=== PATIENT | female | born 1945 | race Caucasian/White ===

== ENCOUNTER 2018-07-24 10:02 | Inpatient (IN) | payer MEDICARE, BC, OTHER ==
--- NOTE | 2018-07-15 13:23 | HP ---
PREOPERATIVE HISTORY AND PHYSICAL: DATE OF ADMISSION: 07/24/18 PROVIDER: Marifer Herring MD* (dictated by JUAN DAVID Caro). CHIEF COMPLAINT: Right hip pain. HISTORY OF PRESENT ILLNESS: Ms. Terrell is a 73-year-old female who has had 10 years of increasingly severe right hip pain. It has become worse over the last 6 months. She has difficulty walking at home. It radiates down her thighs. She uses a rolling walker and has to hold onto the sanchez to walk. She tried physical therapy but that made it worse. She has tried antiinflammatories and other conservative management without relief. She is interested in surgical intervention for correction of the problem. PAST MEDICAL HISTORY: Hypothyroidism, hypercholesterolemia, osteoarthritis, and parathyroid cancer. PAST SURGICAL HISTORY: Partial thyroid and parathyroid excision, laparoscopy, D and C, and cholecystectomy. She reports no complications with the anesthesia with those procedures. CURRENT MEDICATIONS: 1. Tylenol as needed for pain. 2. Meloxicam 15 mg daily. 3. Levothyroxine sodium 150 mcg daily. 4. Atorvastatin calcium 20 mg daily. 5. Calcitriol 0.25 mcg daily. 6. Calcium supplement. 7. Multivitamin. 8. Garlic supplement. 9. Flaxseed oil. 10. Prune juice as needed. 11. Turmeric. ALLERGIES: SULFA DRUGS. FAMILY HISTORY: Positive for diabetes in her father and cancer in her sibling. SOCIAL HISTORY: She lives with her spouse. 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 She denies tobacco, alcoholic beverage, or other recreational drug use and she is right-hand dominant. REVIEW OF SYSTEMS: A 14-point review of systems was discussed with the patient , positive for seasonal allergies. All other systems were negative except as discussed in the HPI. PHYSICAL EXAMINATION GENERAL: She is a well-developed, well-nourished pleasant female in no acute distress at rest. She is alert and oriented x3 with appropriate mood and affect. HEENT: Normocephalic, atraumatic. Her hearing and vision are grossly intact. GAIT : She ambulates with a moderately antalgic gait, favoring the right hip with a mild abductor lurch. She has a decreased single-leg stance and her coordination is normal. NECK: Her trachea is midline. CARDIOVASCULAR: Regular rate and rhythm. No murmurs, rubs, or gallops. Normal S1, S2. RESPIRATORY: Lungs are clear to auscultation bilaterally. No wheezes, rales, or rhonchi. ABDOMEN: Soft, nondistended, nontender. Normal bowel sounds. EXTREMITIES: Exam of the right lower extremity: The patient's skin is intact. There are no abrasions or open wounds. No palpable masses or lymph nodes. She has 0 to 85 degrees of flexion at the hip with pain but no instability, 0 degrees of internal rotation, 20 degrees of external rotation with extreme pain in the groin. There is no edema, varicosity, or hyperreflexia distally. She has 5/5 ankle dorsiflexion and plantar flexion strength. Sensation to light touch is intact to all nerve distributions. She has 2+ dorsalis pedis pulse. IMAGING: Previous views of the right hip were reviewed and showed severe end- stage osteoarthritis with [id number] contact, subchondral sclerosis, and osteophyte formation. IMPRESSION: Right hip osteoarthritis. PLAN: The patient is to undergo right total hip arthroplasty by Dr. Herring on . The risks, benefits, and postoperative course were discussed with the patient in the office by Dr. Herring and the patient would like to proceed. All of her questions were answered of her full satisfaction. We will follow up with the patient in the postoperative phase. JUAN DAVID CARO [id number]/CPS #: [id number]
[~2018-07-24 10:02] MED LIST: Acetaminophen IV 1GM/100ML * 1,000 MG/100 ML VIAL IVPB ONE; Buffered Lidocaine 1% SYRIN* 1 ML/SYRINGE INTRADERM ONE; Dexamethasone IV* 4 MG/ML 1 ML (4 MG) IV SLOW PU ONE; Famotidine IV* 10 MG/ML 2 ML (20 mg) IV ONE; Gabapentin CAP(*) 300 MG PO ONE; Lactated Ringers 1000 ML Bag* 1,000 ML IV SCH; ceFAZolin 2 GM in NS PREMIX(*) 2 GM/100 ML BAG IVPB ONE; celeCOXIB CAP* 200 MG PO ONE
--- OUTSIDE RECORDS SUMMARY | 2018-07-24 10:06 | XMS REPORT | Continuity of Care Document ---
:1945 External Reference #:[id number] Author Name Yeison Darby Care Team Providers Name Role Phone Delphine Piña MD Primary Care Physician Unavailable Payers Date Identification Numbers Payment Provider Subscriber Policy Number: [id number] Medicare Haven Terrell PayID: [id number] [address] [place] [address] Expires: 2018 Policy Number: [id number] Medicare Haven Terrell PayID: [id number] [address] [place] [address] Policy Number: [id number] [facility] Haven Terrell PayID: [id number] [address] [place] [address] Policy Number: [id number] [employer] Haven Terrell PayID: [id number] [address] [place] [address] Advance Directives Description No Information Available Problems Date Description Provider Status Onset: 07/11/2018 Localized, primary osteoarthritis of the Marifer Yann Herring Active pelvic region and thigh Family History Date Family Member(s) Observation Comments General Diabetes General Cancer Social History Type Date Description Comments Sex Unknown Lives With Spouse Occupation Retired ETOH Use Denies alcohol use Tobacco Use Start: Unknown Patient has never smoked Smoking Status Reviewed: 07/11/18 Patient has never smoked Exercise Type/Frequency Exercises sporadically Allergies, Adverse Reactions, Alerts Date Description Reaction Status Severity Comments 06/23/2018 Sulfa Active Medications Medication Date Status Form Strength Qnty SIG Indications Ordering Provider Tylenol Active Unknown 000 Meloxicam Active Unknown 000 Levothyroxine Active Tablets 150mcg Jabier, Sodium 000 MD Manjeet Atorvastatin Active Tablets 20mg Take One Unknown Calcium 000 Tablet By Mouth Every Day Calcitriol Active Capsules 0.25mcg 1 by Unknown 000 mouth every day Calcium\\ Active Unknown 000 Multi Complete Active Unknown 000 Garlic Active Unknown 000 Flaxseed Oil Active Unknown 000 Prune Juice Active Unknown 000 Turmeric With Active Unknown Black Pepper 000 Gabapentin Hx Capsules 100mg Janak 000 - Alesha, APPEALS COORDINATOR-BC 019 Extra Strength Hx Unknown Pain Reliever 000 - [address] 81mg 1 by Unknown 000 - mouth every 019 day Immunizations Description No Information Available Vital Signs Date Vital Result Comment 07/11/2018 1:26pm Height 68 inches 5'8" Weight 228.00 lb Heart Rate 100 /min BP Systolic 120 mmHg BP Diastolic 86 mmHg BMI (Body Mass Index) 34.7 kg/m2 06/23/2018 2:15pm Height 68 inches 5'8" Weight 225.00 lb Heart Rate 80 /min BP Systolic 154 mmHg BP Diastolic 86 mmHg Pain Level 5 BMI (Body Mass Index) 34.2 kg/m2 Results Description No Information Available Procedures Description No Information Available Encounters Type Date Location Provider Dx Diagnosis Office Visit 06/23/2018 Orthopedic Marifer Herring, M25.551 Pain in right hip 1:45p [facility] M16.11 Unilateral primary osteoarthritis, right hip Plan of Treatment Future Appointment(s):08/08/2018 2:45 pm - Marifer Herring M.D. at [facility]..07/24/2018 11:30 am - THERESE Kelley at [facility]..07/24/2018 11:30 am - JUAN DAVID Randhawa at [facility].A.07/24/2018 11:30 am - Marifer Herring M.D. at [facility].A.08/28/2018 11:00 am - Lena Andrew MD at [facility] AT Xrujxarq75/05/2019 - Marifer Herring M.D.M25.551 Pain in right hipNew Therapy: Physical TherapyFollow up:Follow up: 10-14 days [id number] Unilateral primary osteoarthritis, right hip
--- OUTSIDE RECORDS SUMMARY | 2018-07-24 10:06 | XMS REPORT | Continuity of Care Document ---
:1945 External Reference #:[id number] Author Name Irina Flores M.D. Address [address] [place] [address] Care Team Providers Name Role Phone Delphine Piña MD Care Team Information Splitter Head Unavailable Delphine Piña MD Primary Care Physician Unavailable Payers Date Identification Numbers Payment Provider Subscriber Policy Number: [id number] Medicare Haven Terrell PayID: [id number] [address] [place] [address] Policy Number: [id number] [facility] Haven Terrell PayID: [id number] [address] [place] [address] Policy Number: [id number] [facility] Ben Terrell PayID: [id number] [address] [place] [address] Expires: 2018 Policy Number: [id number] Medicare Haven Terrell PayID: [id number] [address] [place] [address] Expires: 2017 Policy Number: [id number] DO Not Use-Add [facility] Haven Terrell PayID: [id number] [address] [place] [address] Advance Directives Description No Information Available Problems Date Description Provider Status Onset: 06/26/2018 Hematuria syndrome Irina Flores M.D. Active Onset: 03/27/2016 Trochanteric bursitis Jermaine Gonsalez M.D. 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 Tobacco Use Start: Unknown Never Smoked Cigarettes ETOH Use Denies alcohol use Tobacco Use Start: Unknown Patient has never smoked Recreational Drug Use Denies Drug Use Smoking Status Reviewed: 06/24/18 Patient has never smoked Exercise Type/Frequency Exercises sporadically Allergies, Adverse Reactions, Alerts Date Description Reaction Status Severity Comments 01/05/2013 Sulfa Drugs Active Medications Medication Date Status Form Strength Qnty SIG Indications Ordering Provider Calcitriol Active Capsules 0.25mcg 30cap 1 po qd Unknown 00 s Levothyroxine Active Tablets 150mcg 1 po qd Unknown Sodium 00 Calcium 600 Active Tablets 1 po qd Unknown 00 Complete Senior Active Tablets 1 po qd Unknown 00 Garlic Active Capsules 1000mg 1 po Unknown 00 bid Flaxseed Oil Active Capsules 1200mg 1 po in Unknown 00 am Atorvastatin Active Tablets 20mg 30tab 1 by Ayana Calcium 00 s mouth MD Delphine every day Turmeric Active Capsules 500mg 1 po Unknown 00 bid Meloxicam Active Tablets 7.5mg 1 by Unknown 00 mouth every day Meloxicam 09/11/19 Hx Tablets 15mg 30tab Take [place], 17 - s One Jermaine, Unknown Tablet M.D. By Mouth Every Day With Food Diclofenac Sodium 09/16/[address] 75mg 60tab take 1 [place], 16 - s tablet Jermaine, 09/11/19 by M.D. 17 mouth twice daily with food Meloxicam 01/06/20 Hx Tablets 15mg 30tab 1 po q Saeing, 13 - s day felton Richardson, 09/16/19 food MD FACS [address] 40mg 30cap 1 po qd Unknown 00 - s 09/11/19 17 Amitriptyline HCL Hx Tablets 10mg 1 po qd Unknown - 08/08/19 14 Cyclobenzaprine Hx Tablets 5mg prn Unknown HCL 08/08/19 14 Stool Softener Hx Capsules 100mg 1 po qd Unknown 04/12/19 17 Borage Oil Hx Capsules Unknown - 04/11/19 17 [place]-3-6-9 Hx Capsules 1200mg Unknown 09/16/19 16 Fish Oil Hx Capsules Unknown 09/16/19 16 Gabapentin Hx Capsules 100mg 1 by Unknown 00 - mouth 04/12/19 three 17 times a day Aspirin Adult Low Hx Tablets DR 81mg 1 by Unknown Strength 00 - mouth 06/27/19 every 19 day Amitriptyline HCL Hx Tablets 10mg Take Unknown 00 - One Unknown Tablet By Mouth Every Day Prevnar 13 Hx Suspension Adm Unknown 00 - 0.5ML Unknown Im Utd Medications Administered in Office Medication Date Status Form Strength Qnty SIG Indications Ordering Provider Methylprednisolone 08/06 Administered Injection jose Lopez Amalia (Depomedrol) 80mg S., RPAC injection Immunizations Description No Information Available Vital Signs Date Vital Result Comment 06/26/2018 2:53pm BP Systolic 143 mmHg BP Diastolic 82 mmHg Body Temperature 97.8 F Heart Rate 96 /min Respiratory Rate 17 /min Height 69 inches 5'9" Weight 225.00 lb Pt stated BMI (Body Mass Index) 33.2 kg/m2 BSA (Body Surface Area) 2.17 m2 [place] body weight in kilograms 66 kg O2 % BldC Oximetry 97 % Pain Level 0 05/05/2018 1:34pm BP Systolic Lying Down Resting Right Arm 124 mmHg BP Diastolic Lying Down Resting Right Arm 68 mmHg Heart Rate 95 /min Respiratory Rate 16 /min Height 69 inches 5'9" Weight 231.00 lb BMI (Body Mass Index) 34.1 kg/m2 BSA (Body Surface Area) 2.20 m2 [place] body weight in kilograms 66 kg O2 Saturation Level with Exercise 99 % 10/31/2017 3:27pm BP Systolic Sitting Right Arm 126 mmHg BP Diastolic Sitting Right Arm 86 mmHg Heart Rate 94 /min Respiratory Rate 14 /min Height 69 inches 5'9" Weight 224.00 lb BMI (Body Mass Index) 33.1 kg/m2 BSA (Body Surface Area) 2.17 m2 [place] body weight in kilograms 66 kg O2 % BldC Oximetry 94 % Room air 08/01/2017 3:39pm BP Systolic Sitting Left Arm 124 mmHg BP Diastolic Sitting Left Arm 78 mmHg Heart Rate 81 /min Respiratory Rate 16 /min Height 69 inches 5'9" Weight 229.00 lb BMI (Body Mass Index) 33.8 kg/m2 BSA (Body Surface Area) 2.19 m2 [place] body weight in kilograms 66 kg O2 % BldC Oximetry 98 % Room air 09/10/2016 10:19am BP Systolic Sitting Left Arm 145 mmHg BP Diastolic Sitting Left Arm 84 mmHg Heart Rate 102 /min Height 69 inches 5'9" Weight 219.00 lb BMI (Body Mass Index) 32.3 kg/m2 BSA (Body Surface Area) 2.15 m2 [place] body weight in kilograms 66 kg 09/16/2015 10:16am BP Systolic Sitting Left Arm 146 mmHg BP Diastolic Sitting Left Arm 92 mmHg Heart Rate 87 /min Respiratory Rate 18 /min Height 69.75 inches 5'9.75" Weight 217.00 lb BMI (Body Mass Index) 31.4 kg/m2 BSA (Body Surface Area) 2.16 m2 01/05/2013 1:22pm BP Systolic Sitting Right Arm 128 mmHg BP Diastolic Sitting Right Arm 78 mmHg Height 69.75 inches 5'9.75" Weight 211.00 lb BMI (Body Mass Index) 30.5 kg/m2 BSA (Body Surface Area) 2.13 m2 Results Test Date Facility Test Result H/L Range Note Ua RFX Micro & 06/26/2018 [facility] Urine Color YELLOW Yellow 1 Culture II [address] [place] [address] [phone] Urine Clarity CLEAR Clear Urine Glucose - Dipstick NEGATIVE mg/dL Negative Urine Bilirubin - Dipstick NEGATIVE Negative Urine Ketone NEGATIVE mg/dL Negative Urine Specific [place] 1.010 N 1.010-1.030 Urine Blood TRACE Negative Urine PH 6.0 Low 6.5-7.5 Urine Protein - Dipstick NEGATIVE mg/dL Negative Urine Urobilinogen - Dipstick 0.2 E.U./dL N 0.2-1.0 Urine Nitrite - Dipstick NEGATIVE Negative Urine Leuk Esterase TRACE Abnormal Negative Urine RBC 0-2 rbc/hpf 0-2 Urine WBC 0-2 wbc/hpf 0-7 Urine Epithelial Cells VERY FEW /lpf None Seen Urine Bacteria VERY FEW None Seen Urine Dipstick 06/26/2018 [facility] Ua Color Yellow Yellow Ua Clarity Clear Clear Ua Leuko Negative Negative Ua Nitrite Negative Negative Ua Urobilinogen 0.2 0.2 - 1.0 E.U./dL Ua Protein Negative Negative Ua PH 6.0 Low 6.5-7.5 Ua Blood 25 High Negative Ua Specific [place] 1.020 1.010-1.030 Ua Ketones Negative Negative Ua Bilirubin Negative Negative Ua Glucose Negative Negative BUN And Creatinine 08/17/2011 N2N/CCD Import BUN 18 mg/dL 5-23 BUN/Creat 18.0 ratio Creatinine 1.0 mg/dL 0.5-1.4 Laboratory test finding 08/17/2011 N2N/CCD Import Alb/Glob 1.0 ratio Albumin 3.6 g/dL 3.5-5.0 Alkaline Phosphatase 61 U/L 50-136 Bilirubin,Direct < 0.1 mg/dL Low 0.1-0.4 Bilirubin,Indirect 0.2 mg/dL 0.0-0.9 Bilirubin,Total 0.3 mg/dL 0.2-1.2 Globulin 3.7 g/dL 1.9-4.3 SGPT/Alt 35 U/L 30-65 Sgot/Ast 23 U/L 16-40 Total Protein 7.3 g/dL 6.3-8.0 BUN And Creatinine 02/16/2011 N2N/CCD Import BUN 18 mg/dL 5-23 BUN/Creat 20.0 ratio Creatinine 0.9 mg/dL 0.5-1.4 Laboratory test finding 02/16/2011 N2N/CCD Import Alb/Glob 0.9 ratio Albumin 3.6 g/dL 3.5-5.0 Alkaline Phosphatase 60 U/L 50-136 Bilirubin,Direct < 0.1 mg/dL Low 0.1-0.4 Bilirubin,Indirect 0.4 mg/dL 0.0-0.9 Bilirubin,Total 0.5 mg/dL 0.2-1.2 Globulin 4.0 g/dL 1.9-4.3 SGPT/Alt 35 U/L 30-65 Sgot/Ast 20 U/L 16-40 Total Protein 7.6 g/dL 6.3-8.0 1 R31.21 Procedures Date Code Description Status 09/10/2016 80446 Radiology, Both Knees Standing Completed 09/10/2016 56846 Radiology, Both Knees Standing Completed 09/10/2016 09953 Radiology, Distal Femur--Knee 1 Or 2 Views Completed 09/10/2016 12920 Radiology, Distal Femur--Knee 1 Or 2 Views Completed 03/27/2016 17703 Radiologic Exam Hip Unilateral With Pelvis 2-3 Views Completed 03/27/2016 46508 Asp./Injection major joint Completed 09/16/2015 69183 Radiology, Knee 3 Views Completed 09/16/2015 04162 Radiology, Knee 3 Views Completed 12/16/2013 46861 Echocardiogram Complete Completed 09/03/2013 17875 Radiology, Hip Complete 2 Views Completed 09/03/2013 91431 Radiology, Hip Complete 2 Views Completed 08/06/2013 20103 Asp./Injection major joint Completed 12/19/2010 18340 EKG Interpretation And Report Only Completed 12/13/2010 31612 Anesthesia, Neck Organ Surgery Not Otherwise Spec 1Yr Or Completed Older 12/08/2010 39189 EKG Interpretation And Report Only Completed 08/10/2009 06794 EKG Interpretation And Report Only Completed 09/26/2006 46159 Asp./Injection major joint Completed 06/10/2006 20589 Tympanometry Completed 06/10/2006 12700 Fiberoptic Laryngoscopy,Diag. Completed Encounters Type Date Location Provider Dx Diagnosis Office Visit 06/26/2018 Urology Irina Flores, R31.9 Hematuria, 3:00p M.D. unspecified Office Visit 05/05/2018 Pulmonology Gareth Jay MD R91.1 Solitary pulmonary 1:45p nodule G47.33 Obstructive sleep apnea (adult) (pediatric) Office Visit 10/31/2017 3:30p Pulmonology Gareth Jay MD R91.1 Solitary pulmonary nodule G47.33 Obstructive sleep apnea (adult) (pediatric) Office Visit 08/01/2017 3:45p Pulmonology Gareth Jay MD R91.1 Solitary pulmonary nodule G47.33 Obstructive sleep apnea (adult) (pediatric) Office Visit 10/11/2016 Gallito Lopez, M17.0 Bilateral primary 10:30a Office Amalia Palacios osteoarthritis of [facility] knee Office Visit 09/10/2016 Gallito Lopez, M25.562 Pain in left knee 10:15a Office Amalia Palacios [facility] M25.561 Pain in right knee M17.0 Bilateral primary osteoarthritis of knee Office Visit 04/12/2016 10:45a Orthopaedic Office Wallace M70.61 Trochthaddeus Dean M.D. bursitis, right hip Office Visit 03/27/2016 3:00p Orthopaedic Office Wallace M70.61 Trochantersalomón Dean M.D. bursitis, right hip M25.551 Pain in right hip Office Visit 09/16/2015 10:30a Orthopaedic Office Amalia Lopez M25.562 Pain in S., RPA left knee M17.12 Unilateral primary osteoarthritis, left knee Office Visit 12/17/2013 12:13p Cardiology Office Lorena Michaud, 786.50 Pain Chest MD Unspec Office Visit 09/03/2013 11:30a Orthopaedic Office John 727.3 Bursitis Other Amalia S., [facility] 719.45 Pain Joint Pelvic Region & Thigh 715.15 Osteoarthrosis Localized Prim Pelvic & Thigh V54.89 Aftercare, Orthopedic Other Office Visit 08/06/2013 11:15a Orthopaedic Office Amalia Lopez 727.3 [facility]ursitis Other S., [facility] 7[facility] Pelvic Region & Thigh Office Visit 02/16/2013 1:15p Orthopaedic Office Amalia Lopez 719.45 Pain Joint S., RPAC Pelvic Region & Thigh 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 Earache Unspec 381.52 Eustachian Salpingitis Chronic Plan of Treatment Future Appointment(s):06/29/2019 1:15 pm - Irina Flores M.D. at [id number] - Irina Flores M.D.R31.9 Hematuria, unspecifiedComments:will check a urinalysis today, if there is microscopic hematuria I discussed the patient the workup which included CT scan and a cystoscopy. if the urinalysis is negative I will see her back in 1 year for another urinalysis.
[2018-07-24] MEDS ORDERED: Famotidine IV* 10 MG/ML 2 ML (20 mg) ONE (10:45)
[2018-07-24] MEDS ORDERED: Gabapentin CAP(*) 300 MG ONE (10:45)
[2018-07-24] MEDS ORDERED: Dexamethasone IV* 4 MG/ML 1 ML (4 MG) ONE (10:45)
[2018-07-24] MEDS ORDERED: ceFAZolin 2 GM in NS PREMIX(*) 2 GM/100 ML BAG IVPB ONE (10:45)
[2018-07-24] MEDS ORDERED: celeCOXIB CAP* 100 MG ONE (10:45)
[2018-07-24] MEDS ORDERED: Acetaminophen IV 1GM/100ML * 100 ML ONE (11:31)
[2018-07-24] MEDS ORDERED: fentaNYL* 50 MCG/ML 2 ML VIAL (100 MCG VIAL) ONE (12:15)
[2018-07-24] MEDS ORDERED: Propofol* 10 MG/ML 20 ML BTL ONE (12:15)
[2018-07-24] MEDS ORDERED: Bupivacaine 0.5% SDV PF* 30ML VIAL ONE (12:15)
[2018-07-24] MEDS ORDERED: Midazolam* 1 MG/ML 5 ML VIAL (5 MG) ONE (12:15)
[2018-07-24] MEDS ORDERED: Ondansetron INJ* 2 MG/ML VIAL ONE (12:15)
[2018-07-24] MEDS ORDERED: KETAMINE HCL* 50 MG/ML 10 ML VIAL ONE (12:15)
[2018-07-24] MEDS ORDERED: ROPIVACAINE 5 MG/ML 30 ML BTL (0.5%) ONE ×2 (12:55→15:38)
[2018-07-24] MEDS ORDERED: Ropivacaine (OR use only) 2 MG/ML 10 ML ONE (12:55)
[2018-07-24] MEDS ORDERED: HYDROmorphone INJ1* 1 MG/ML SYRINGE IV PRN (14:15)
[2018-07-24] MEDS ORDERED: DiMENhydriNATE IV* 50 MG/ML VIAL IV PUSH PRN (14:15)
[2018-07-24] MEDS ORDERED: fentaNYL* 50 MCG/ML 2 ML VIAL (100 MCG VIAL) IV PRN (14:15)
[2018-07-24] MEDS ORDERED: Naloxone* 0.4 MG/ML 1 ML VIAL IV PRN (14:15)
[2018-07-24] MEDS ORDERED: Ondansetron INJ* 2 MG/ML VIAL IV PRN (14:15)
[2018-07-24] MEDS ORDERED: oxyCODONE/Acetamin 5/325 MG* TAB PO PRN ×2 (14:15→16:03)
[2018-07-24] MEDS ORDERED: diPHENhydraMINE IV* 50 MG/ML 1 ml VIAL (BENADRYL) IV PRN (16:03)
[2018-07-24] MEDS ORDERED: Cyclobenzaprine TAB* 10 MG PO PRN (16:03)
[2018-07-24] MEDS ORDERED: Morphine 4 MG/ML VIAL (1 ml) 4 MG/ML VIAL IV PRN (16:03)
[2018-07-24] MEDS ORDERED: Bisacodyl SUPP* 10 MG SUPP PR PRN (16:03)
[2018-07-24] MEDS ORDERED: Magnesium Hydroxide LIQ* 30 ML UDC PO PRN (16:03)
[2018-07-24] MEDS: Lactated Ringers 1000 ML Bag* 1,000 ML IV SCH (17:58)
--- NOTE | 2018-07-24 18:01 | OP ---
Operative Report - Blank - Operative Report Date of Operation: 07/24/18 Note: GINGER HUFF 1945 Date Of Surgery: 07/24/18 Marifer Herring MD [employer] Technician: Jeff FALL did help throughout the procedure with preparation of the hip, wound retraction, manipulation of the hip, and wound closure. Anesthesiologist: Dr. Mejia Anesthesia Type: General Preoperative Diagnosis: Right severe degenerative osteoarthritis of the hip Postoperative Diagnosis: As above Procedure Performed: Right Total Hip Arthroplasty Complications: None Specimen: Femoral head and acetabular reamings sent to pathology. Hardware used: This is uncemented [place] total hip arthroplasty hardware for the femur a size right femoral component, for the acetabulum a size 48D trident II tritanium cluster hole shell with a 20 mm screw, for the insert a size 32D trident x 3 insert, and for the femoral head a size 32 - 4 ceramic biolox V40 femoral head. Brief history/Indication: GINGER HUFF was known in clinic and had a history of severe right hip pain. She failed conservative treatment with anti- inflammatories, pain pills, intra-articular injections and physical therapy. She elected to undergo right total hip arthroplasty due to continued pain and decreased quality of life. Radiographs showed severe end stage osteoarthritis of the hip with bone on bone contact. Informed consent was obtained from the patient. She understood the risks of surgery included but were not limited to: bleeding, infection, damage to nearby structures, intraoperative fracture, nerve palsy, failure of the hardware, early loosening, stiffness or loss of motion, dislocation, leg length discrepancy, anesthesia complications, stroke, heart attack, blood clot and . She wished to proceed. Intra-Operative findings: Intraoperatively the patient was noted to have severe loss of cartilage of the acetabulum and femoral head. Description of the Procedure: GINGER HUFF was identified in the preanesthesia unit. Her right hip was marked as the correct operative side. Informed consent was signed and placed in the chart. The patient was taken to the operating room and placed under anesthesia without complication. A aldrich catheter was placed. The patient was placed on the peg board with all bony prominences well padded. The right lower extremity was prepped and draped in the usual sterile fashion. Preoperative time -out was made to correctly identify the patient, side and site. Appropriate intraoperative antibiotics were given within one hour of incision. A standard posterior incision was made and carried sharply down to the lateral fascia. A new 10 blade was used to make an incision in the fascia in line with the skin incision. A charnley retractor was placed. The piriformis and conjoined tendons were identified and elevated off the posterolateral femur using electrocautery. These were tagged with number 5 Ethibond. Next electrocautery was used to make a posterolateral capsular flap and this was tagged with number 5 Ethibonds. The hip was carefully dislocated. Lesser trochanter to the center of the femoral head was measured at 55 mm. The oscillating saw was used to make the femoral neck cut. The femoral head was carefully removed. The femur was retracted anteriorly and the acetabular retractors were placed. Long-handled knife was used to sharply remove any remaining labrum from the acetabular rim. The acetabulum was sequentially reamed up to a size 47. A bleeding subchondral bone bed was obtained. A trial cup was placed and had excellent fit and stability. A 48D trident II tritanium cluster hole shell was placed and had excellent stability with appropriate anteversion and abduction angle. A size 32D liner was impacted into the acetabular shell. The liner was checked for stability and was stable. Next attention was turned to preparation of the femoral canal. A canal finder was used to enter the proximal femur. The femoral canal was sequentially broached up to a size 5 femoral broach trial. A trial neck and 32 - 4 trial femoral head was chosen. Lesser trochanter to center of the femoral head measurement was satisfactory. The hip was reduced and taken through a range of motion. The hip was stable in all positions with good soft tissue tension and appropriate leg lengths. The hip was dislocated and all trials were removed. The final implant chosen was a accolade II size 5 with 127 neck. This stem was impacted into the femoral canal without difficulty. The stem was stable with appropriate anteversion. The femoral head chosen was a 32 - 4 biolox ceramic. The head was impacted onto the femoral neck without difficulty. The final lesser trochanter to center of the femoral head measurement was satisfactory. The hip was reduced and taken through a range of motion. The hip was stable in all positions with good soft tissue tension and appropriate leg lengths. The hip was copiously irrigated with sterile saline. The previously tagged capsule and tendons were repaired to the posterolateral femur through two trochanteric drill holes. The lateral fascia layer was closed using number 1 vicryls. The rest of the incision was closed in a layered fashion using 0 and 2-0 vicryls. The skin was closed using 3-0 monocryl suture and Dermabond. Sterile adaptic, 4x4s and paper tape was used to cover the incision. The patients anesthesia was reversed without difficulty. She was taken to the PACU in stable condition. Intended weight-bearing will be as tolerated with posterior hip precautions.
[2018-07-24] MEDS ORDERED: Calcium/Vitamin D TAB 250/125* TAB PO SCH (21:00)
[2018-07-24] MEDS: Docusate CAP* 100 MG PO SCH (21:22)
[2018-07-24] MEDS: CALCIUM PO SCH (21:22)
[2018-07-24] MEDS: VITAMIN D PO SCH (21:22)
[2018-07-24] MEDS: Apixaban* 2.5 MG TAB PO SCH (21:22)
[2018-07-24] MEDS: ceFAZolin 1 GM ADVAN(*) 1 GM in NS 0.9% 50 ML* 50 ML IVPB SCH (21:23)
[2018-07-24] MEDS: Magnesium Hydroxide LIQ* 30 ML UDC PO SCH (21:25)
[2018-07-24] MEDS: oxyCODONE TAB* 5 MG TAB PO PRN (22:48)
[2018-07-25] MEDS: Lactated Ringers 1000 ML Bag* 1,000 ML IV SCH (04:27)
[2018-07-25] MEDS: Levothyroxine TAB* 150 MCG TAB PO SCH (06:03)
[2018-07-25] MEDS: oxyCODONE/Acetamin 5/325 MG* TAB PO PRN ×3 (06:03→19:53)
[2018-07-25] MEDS: ceFAZolin 1 GM ADVAN(*) 1 GM in NS 0.9% 50 ML* 50 ML IVPB SCH ×2 (06:05→12:44)
[2018-07-25 07:21] LABS: Hematocrit 31 % (33-41); Hemoglobin 10.4 g/dL (12.0-16.0); Mean Platelet Volume 8.8 fL (7.4-10.4); Platelet Count 176 10^3/uL (150-450)
[2018-07-25 07:48] LABS: BUN/Creatinine Ratio 26.5 (8-20); Calcium 7.7 mg/dL (8.6-10.3); EGFR African American 102.9 (>60); EGFR Non-African American 85.1 (>60); Potassium 3.9 mmol/L (3.5-5.0)
[2018-07-25] MEDS: Atorvastatin* 20 MG TAB PO SCH (08:34)
[2018-07-25] MEDS: Docusate CAP* 100 MG PO SCH ×2 (08:34→19:53)
[2018-07-25] MEDS: Apixaban* 2.5 MG TAB PO SCH ×2 (08:35→19:53)
[2018-07-25] MEDS: oxyCODONE TAB* 5 MG TAB PO PRN ×2 (08:36→15:07)
[2018-07-25] MEDS: Magnesium Hydroxide LIQ* 30 ML UDC PO SCH ×2 (08:36→20:05)
[2018-07-25] MEDS: Vitamin THERAPEUTIC TAB PO SCH (08:36)
[2018-07-25] MEDS: CALCITRIOL 0.25 MCG PO SCH (08:57)
[2018-07-25] MEDS: VITAMIN D PO SCH ×2 (08:57→19:53)
[2018-07-25] MEDS: CALCIUM PO SCH ×2 (08:57→19:53)
--- NOTE | 2018-07-25 10:42 | PN ---
Progress Note - Progress Note Date of Service: 07/25/18 SOAP: Subjective: []Patient seen OOB in chair. Feeling discouraged this morning. Emotional earlier but feeling better now. Pain is mild to moderate. Objective: [] Vital Signs Temp 97.4 F 07/25/18 07:54 Pulse 87 07/25/18 07:54 Resp 18 07/25/18 08:36 BP 121/51 07/25/18 07:54 Pulse Ox 98 07/25/18 08:00 Intake & Output 07/24/18 07/25/18 07/25/18 18:59 06:59 18:59 Intake Total 1500 1630 320 Output Total 500 1900 Balance 1000 -270 320 Weight 225 lb Intake: IV Fluids 1500 1030 ABX - CEFAZOLIN 50 LR 1500 980 Oral 600 320 Output: Bravo 500 1900 Other: # Bowel Movements 0 Laboratory Results - last 24 hr 07/25/18 07/25/18 06:21 06:21 Hgb 10.4 L Hct 31 L Plt Count 176 MPV 8.8 Sodium 139 Potassium 3.9 Chloride 102 Carbon Dioxide 30 Anion Gap 7 BUN 18 Creatinine 0.68 Est GFR ( Amer) 102.9 Est GFR (Non-Af Amer) 85.1 BUN/Creatinine Ratio 26.5 H Glucose 123 H Calcium 7.7 L right hip dressings are dry and intact +Df right ankle sensation intact calf non tender and soft Assessment: []s/p right total hip arthroplasty POD #1 Plan: []PT OT WBAT RLE Posterior hip precautions Eliquis for DVT prophylaxis Home in 1-2 days when PT goals met and pain managed.
[2018-07-25] MEDS: Ondansetron INJ* 2 MG/ML VIAL IV PRN (19:55)
[2018-07-26] MEDS: oxyCODONE/Acetamin 5/325 MG* TAB PO PRN ×2 (03:35→07:52)
[2018-07-26] MEDS: Levothyroxine TAB* 150 MCG TAB PO SCH (06:02)
[2018-07-26 06:45] LABS: Hematocrit 28 % (33-41); Hemoglobin 9.3 g/dL (12.0-16.0); Mean Platelet Volume 8.2 fL (7.4-10.4); Platelet Count 151 10^3/uL (150-450)
--- NOTE | 2018-07-26 06:58 | PN ---
Progress Note - Progress Note Date of Service: 07/26/18 SOAP: Subjective: resting comfortably with no significant complaints of pain Objective: Vital Signs Temp Pulse Resp BP Pulse Ox 98.7 F 95 16 124/51 93 07/26/18 03:30 07/26/18 03:30 07/26/18 06:06 07/26/18 03:30 07/26/18 03:30 Laboratory Last Values Hgb 9.3 g/dL (12.0-16.0) L 07/26/18 06:34 Hct 28 % (33-41) L 07/26/18 06:34 Plt Count 151 10^3/uL (150-450) 07/26/18 06:34 MPV 8.2 fL (7.4-10.4) 07/26/18 06:34 Sodium 139 mmol/L (135-145) 07/25/18 06:21 Potassium 3.9 mmol/L (3.5-5.0) 07/25/18 06:21 Chloride 102 mmol/L (101-111) 07/25/18 06:21 Carbon Dioxide 30 mmol/L (22-32) 07/25/18 06:21 Anion Gap 7 mmol/L (2-11) 07/25/18 06:21 BUN 18 mg/dL (6-24) 07/25/18 06:21 Creatinine 0.68 mg/dL (0.51-0.95) 07/25/18 06:21 Est GFR ( Amer) 102.9 (>60) 07/25/18 06:21 Est GFR (Non-Af Amer) 85.1 (>60) 07/25/18 06:21 BUN/Creatinine Ratio 26.5 (8-20) H 07/25/18 06:21 Glucose 123 mg/dL (70-100) H 07/25/18 06:21 Calcium 7.7 mg/dL (8.6-10.3) L 07/25/18 06:21 incision: c/d; dressing changed PE: NVI Assessment: s/p right WILI; POD#2 Plan: 1) PT/OT-WBAT 2) Eliquis for DVT prophylaxis 3) Home today after PT- F/U with Dr. Herring in 2 weeks
[2018-07-26] MEDS: Vitamin THERAPEUTIC TAB PO SCH (07:51)
[2018-07-26] MEDS: CALCIUM PO SCH ×2 (07:51→21:24)
[2018-07-26] MEDS: Docusate CAP* 100 MG PO SCH ×2 (07:51→21:23)
[2018-07-26] MEDS: VITAMIN D PO SCH ×2 (07:51→21:24)
[2018-07-26] MEDS: Atorvastatin* 20 MG TAB PO SCH (07:51)
[2018-07-26] MEDS: Apixaban* 2.5 MG TAB PO SCH ×2 (07:51→21:24)
[2018-07-26] MEDS: CALCITRIOL 0.25 MCG PO SCH (07:52)
[2018-07-26] MEDS: Magnesium Hydroxide LIQ* 30 ML UDC PO SCH ×2 (07:53→21:23)
[2018-07-26] MEDS: Ondansetron INJ* 2 MG/ML VIAL IV PRN (09:13)
[2018-07-26] MEDS ORDERED: Lactated Ringers 1000 ML Bag* 500 ML IV ONE (11:00)
[2018-07-26] MEDS: Acetaminophen TAB* 325 MG PO PRN ×2 (14:52→23:54)
[2018-07-26] MEDS: traMADol TAB* 50 MG PO PRN ×2 (14:55→21:30)
[2018-07-27 05:10] LABS: Hematocrit 26 % (33-41); Mean Platelet Volume 8.1 fL (7.4-10.4); Platelet Count 150 10^3/uL (150-450)
[2018-07-27] MEDS: traMADol TAB* 50 MG PO PRN ×4 (06:15→23:52)
[2018-07-27] MEDS: Levothyroxine TAB* 150 MCG TAB PO SCH (06:15)
[2018-07-27] MEDS: Docusate CAP* 100 MG PO SCH ×2 (08:50→21:11)
[2018-07-27] MEDS: Atorvastatin* 20 MG TAB PO SCH (08:50)
[2018-07-27] MEDS: Apixaban* 2.5 MG TAB PO SCH ×2 (08:50→21:10)
[2018-07-27] MEDS: CALCIUM PO SCH ×2 (08:51→21:11)
[2018-07-27] MEDS: CALCITRIOL 0.25 MCG PO SCH (08:51)
[2018-07-27] MEDS: VITAMIN D PO SCH ×2 (08:51→21:11)
[2018-07-27] MEDS: Magnesium Hydroxide LIQ* 30 ML UDC PO SCH ×2 (08:52→21:11)
[2018-07-27] MEDS: Vitamin THERAPEUTIC TAB PO SCH (08:52)
--- NOTE | 2018-07-27 09:13 | PN ---
Progress Note - Progress Note Date of Service: 07/27/18 SOAP: Subjective: OOB to cahir, complaints of dizziness/light headed when OOB, denies SOB/Chest pain Objective: Vital Signs Temp Pulse Resp BP Pulse Ox 97.5 F 89 16 102/56 98 07/27/18 08:50 07/27/18 08:50 07/27/18 08:53 07/27/18 08:50 07/27/18 08:50 Laboratory Last Values Hgb 9.0 g/dL (12.0-16.0) L 07/27/18 04:53 Hct 26 % (33-41) L 07/27/18 04:53 Plt Count 150 10^3/uL (150-450) 07/27/18 04:53 MPV 8.1 fL (7.4-10.4) 07/27/18 04:53 Sodium 139 mmol/L (135-145) 07/25/18 06:21 Potassium 3.9 mmol/L (3.5-5.0) 07/25/18 06:21 Chloride 102 mmol/L (101-111) 07/25/18 06:21 Carbon Dioxide 30 mmol/L (22-32) 07/25/18 06:21 Anion Gap 7 mmol/L (2-11) 07/25/18 06:21 BUN 18 mg/dL (6-24) 07/25/18 06:21 Creatinine 0.68 mg/dL (0.51-0.95) 07/25/18 06:21 Est GFR ( Amer) 102.9 (>60) 07/25/18 06:21 Est GFR (Non-Af Amer) 85.1 (>60) 07/25/18 06:21 BUN/Creatinine Ratio 26.5 (8-20) H 07/25/18 06:21 Glucose 123 mg/dL (70-100) H 07/25/18 06:21 Calcium 7.7 mg/dL (8.6-10.3) L 07/25/18 06:21 incision: c/d PE: NVI Assessment: s/p right WILI Plan: 1) PT/OT-WBAT 2) Eliquis for DVT prophylaxis 3) consulted hospitalist for low BP and O2 4) possible home today or tomorrow
[2018-07-27] MEDS ORDERED: NS 0.9% 1000 ML** 1,000 ML IV ONE (11:32)
[2018-07-27] MEDS: Acetaminophen TAB* 325 MG PO PRN ×2 (12:56→21:10)
[2018-07-27 13:16] LABS: BUN/Creatinine Ratio 24.2 (8-20); Calcium 7.3 mg/dL (8.6-10.3); EGFR African American 114.5 (>60); EGFR Non-African American 94.6 (>60); Potassium 3.5 mmol/L (3.5-5.0)
[2018-07-27 13:19] LABS: Troponin I 0.01 ng/mL (<0.04)
[2018-07-27] MEDS ORDERED: Iohexol 350* (CONTRAST) 500 ML MDV IV ONE (14:31)
--- NOTE | 2018-07-27 16:07 | CONS ---
CONTINUATION ADDENDUM INCLUDED ON THIS REPORT CC: Dr. Plummer; Dr. Marifer Herring * CONSULTATION REPORT: DATE OF CONSULT: 07/27/18 PRIMARY CARE PROVIDER: Dr. Plummer. MY ATTENDING WHILE IN THE HOSPITAL: Dr. Chrystal Spencer. CONSULTING PROVIDER: Dr. Marifer Herring. REASON FOR CONSULT: Persistent wooziness postoperatively. HISTORY OF PRESENT ILLNESS: Ms. Terrell is a 73-year-old female with past medical history significant for hypothyroidism, status post partial thyroidectomy; parathyroid cancer; osteoarthritis, status post right total hip replacement on 07/24/18 with an uncomplicated surgery; however, after surgery, the patient had significant issues with uncontrolled pain and general feelings of wooziness. The patient states that the wooziness comes and goes with the pain. She endorses intermittent palpitations while in bed. The patient also feels like she gets more lightheaded and woozy when she stands up. The patient' s blood pressure has been intermittently borderline low. The patient also has borderline low oxygen saturations at times, though these remain in the morning and the patient does obstructive sleep apnea. The patient also has become progressively more tachycardic. The patient complains of a dry mouth and poor oral intake and feels like part of her wooziness may be attributable to this. The patient denies any pain in her calves, any chest pain, any shortness of breath. The patient denies numbness or tingling in her hands or feet. The patient's pain at this point is relatively well controlled but she has persistent symptoms of wooziness while walking, again particularly while standing. The patient has never had anything like this before. The patient has had several surgeries and has not had a complicated postoperative course like this. The patient's hemoglobin is stable. The patient had a BMP on , which was relatively unremarkable except for a borderline low calcium level. PAST MEDICAL HISTORY: Hypothyroidism; hypercholesterolemia; osteoarthritis; parathyroid cancer, status post excision; obstructive sleep apnea. PAST SURGICAL HISTORY: Partial thyroid and parathyroid excision, endoscopy, dilation and curettage, and cholecystectomy. MEDICATIONS: At home: 1. Tylenol 500 mg p.o. as needed. 2. Meloxicam 15 mg p.o. daily. 3. Levothyroxine 150 mcg p.o. daily. 4. Atorvastatin 20 mg p.o. daily. 5. Calcitriol 0.25 mcg p.o. daily. 6. Calcium supplementation. 7. Multivitamin. 8. Garlic. 9. Flaxseed oil. 10. Prune juice. 11. Turmeric. Additional inpatient medications: 1. Eliquis 2.5 mg p.o. b.i.d. 2. Flexeril 5 mg p.o. t.i.d. as needed, has not been taking since 07/24/18. 3. Magnesium hydroxide 30 mL p.o. q.6 hours as needed. 4. Zofran 4 mg IV q.6 hours as needed. ALLERGIES: SULFA. CONTINUATION ADDENDUM: MEDICATION LIST: 1. Oxycodone 10 mg p.o. q.4 hours as needed, last received 07/25/18. 2. Percocet 5/325 two tabs q.4 hours as needed, last received 07/26/18. 3. Tramadol 50 mg p.o. q.4 hours as needed, last received 07/27/18. ALLERGIES: SULFA DRUGS. FAMILY HISTORY: The patient's father of emphysema, lung cancer with bone metastasis. The patient's mother of primary bone cancer. The patient's brother has diabetes mellitus. The patient's sister has thyroid cancer. The patient's mother and brother with diabetes mellitus. SOCIAL HISTORY: The patient lives with her spouse. 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 The patient is a never smoker. The patient rarely drinks. The patient has never used illicit drugs. The patient's surrogate decision maker would be her , Ben Terrell. REVIEW OF SYSTEMS: A 14-point review of systems was reviewed with the patient and negative except as above in the HPI. PHYSICAL EXAM: General: The patient is a 73-year-old female, who appears her stated age, sitting comfortably in the bed, in no acute distress. Vital Signs: Temperature 97.4, pulse rate 92, respiratory rate 16, oxygen saturation 98% on room air, blood pressure 120/72. HEENT: Head: Normocephalic, atraumatic. Sclerae anicteric. No conjunctival injection. Nasal mucosa moist. Oral mucosa moist. No pharyngeal erythema, discharge, or exudate. Neck: Supple, nontender. No lymphadenopathy. No carotid bruit auscultated. No JVD. Cardiac : Regular rate and rhythm. No clicks, murmurs, gallops, or rubs. Pulses are 2 + in the dorsalis pedis, posterior tibial, and radial areas. No bilateral lower extremity edema noted. No bilateral calf tenderness. Respiratory: Slight rales in the bilateral lower lobes, otherwise no adventitious lung sounds. Good air exchange bilaterally. Abdomen: Soft, nontender, nondistended. Bowel sounds present and normoactive in all 4 quadrants. No hepatosplenomegaly. No abdominal bruits auscultated. No hepatojugular reflux. Genitourinary: No suprapubic or CVA tenderness. Skin: Clean, dry, intact. No rash. Right-sided hip incision covered with bulky dressing, not visualized. Neuro: Cranial nerves II through XII intact. No focal deficits. Alert and oriented x3. Psychiatric: Pleasant and cooperative. LABORATORY DATA: From this morning, hemoglobin 9.0, hematocrit 26, platelet count 150. Sodium 139, potassium 3.9, chloride 102, carbon dioxide 30, anion gap 7, BUN 18, creatinine 0.68, glucose 123, calcium 7.7. ASSESSMENT AND PLAN/IMPRESSION: Ms. Terrell is a 73-year-old female with a past medical history significant for hypothyroidism; parathyroid cancer, status post thyroid and parathyroid resection, who is postoperative day #3 for right total hip replacement and is having persistent feelings of wooziness. The patient also has been noted to be borderline hypoxic and hypotensive. The patient will be further evaluated for the cause of these problems. 1. Wooziness, lightheadedness. The patient's symptoms are all relatively nonspecific. They are, however, worse with standing up. The patient's blood pressure was normal when standing earlier, but we will recheck orthostatic vital signs. The patient's blood pressure is currently in the normal range. The patient feels somewhat dehydrated and has had poor oral intake. We will give one more liter of fluids. The patient has no tachycardia, no mo hypertension, no persistent hypoxia, but given her recent orthopedic surgery and feelings of wooziness, we will order a CTA of the chest to rule out pulmonary embolism. The patient will also have an EKG and a troponin. Further evaluation pending the results of these tests. The patient has been having palpitations. Differential also includes postoperative atrial fibrillation, other cardiac disease. The patient's hypoxia may be related to atelectasis and she has been encouraged to continue to use her incentive spirometer. This could also be related to medications as it seems to get worse on oxycodone and somewhat better when she takes tramadol. It could also be related to pain; however postoperative complication should be a diagnosis of exclusion. 2. Hypothyroidism. Continue Synthroid. The patient has no TSH on this file and her thyroid disease has been stable. We will not check a TSH at this time. 3. Hypoparathyroidism. The patient's calcium is low on admission. We will recheck a BMP today to assess for worsening in her hypocalcemia or other electrolyte abnormalities that could be contributing to her general feelings of unwellness. 4. DVT prophylaxis. Continue the patient's Eliquis per Orthopedics. 5. FEN. The patient should have a regular, unrestricted diet, and fluids as above. 6. Disposition. Per Orthopedics. The patient may be able to be discharged home today pending above workup. TIME SPENT: Approximately 60 minutes was spent on this consultation, 30 of which was spent [id number] with the patient obtaining history and physical and discussing treatment plan. Plan was discussed with my attending, Dr. Chrystal Spencer, and she is in agreement. Thank you very much for this consultation. We will continue to follow this patient along with you. JUAN DAVID AZUL [id number]/CPS #: [id number]/CPS #: [id number] LOUISE
[2018-07-28 06:00] LABS: Hematocrit 26 % (33-41); Platelet Count 173 10^3/uL (150-450)
[2018-07-28] MEDS: Levothyroxine TAB* 150 MCG TAB PO SCH (06:28)
[2018-07-28] MEDS: Acetaminophen TAB* 325 MG PO PRN (06:28)
--- NOTE | 2018-07-28 07:52 | PN ---
Progress Note - Progress Note Date of Service: 07/28/18 SOAP: Subjective: []Pt seen at bedside. Denies CP, SOB, dizziness, nausea. Hip pain is well controlled Objective: [] General: Appears well, NAD RLE: Hip dressing changed, incision CDI without erythema or discharge, thigh is soft, DF/PF intact, DP2+, sensation intact to light touch distally Calves supple and nontender without erythema, edema or palpable cords Assessment: []s/p right WILI Plan: 1) PT/OT-WBAT 2) Eliquis for DVT prophylaxis 3) vitals stable, CTA negative for PE, trop 0.01 4) anticipate DC to home today Vital Signs Temp 98.7 F 07/28/18 07:27 Pulse 80 07/28/18 07:27 Resp 14 07/28/18 07:27 BP 126/56 07/28/18 07:27 Pulse Ox 94 07/28/18 07:27 Intake & Output 07/27/18 07/28/18 07/28/18 18:59 06:59 18:59 Intake Total 1340 1580 Output Total 720 1200 Balance 620 380 Intake: IVPB 1000 NS (0.9%) 1000 Oral 340 1580 Output: Urine 720 1200 Other: Estimated Void Medium # Bowel Movements 1 Estimated Stool Amount Medium # Voids 1 Laboratory Last Values Hgb 9.0 g/dL (12.0-16.0) L 07/28/18 05:38 Hct 26 % (33-41) L 07/28/18 05:38 Plt Count 173 10^3/uL (150-450) 07/28/18 05:38 MPV 8.0 fL (7.4-10.4) 07/28/18 05:38 Sodium 135 mmol/L (135-145) 07/27/18 12:34 Potassium 3.5 mmol/L (3.5-5.0) 07/27/18 12:34 Chloride 99 mmol/L (101-111) L 07/27/18 12:34 Carbon Dioxide 31 mmol/L (22-32) 07/27/18 12:34 Anion Gap 5 mmol/L (2-11) 07/27/18 12:34 BUN 15 mg/dL (6-24) 07/27/18 12:34 Creatinine 0.62 mg/dL (0.51-0.95) 07/27/18 12:34 Est GFR ( Amer) 114.5 (>60) 07/27/18 12:34 Est GFR (Non-Af Amer) 94.6 (>60) 07/27/18 12:34 BUN/Creatinine Ratio 24.2 (8-20) H 07/27/18 12:34 Glucose 121 mg/dL (70-100) H 07/27/18 12:34 Calcium 7.3 mg/dL (8.6-10.3) L 07/27/18 12:34 Troponin I 0.01 ng/mL (<0.04) 07/27/18 12:34
--- NOTE | 2018-07-28 07:55 | DS ---
Orthopedic Discharge Summary - Discharge Summary Date of Admission:07/24/18 Date of Discharge: 07/28/18 Date of Surgery: 07/24/18 Attending Orthopedic Provider: Dr Herring Pre-operative Diagnosis: right hip arthritis Operative Procedure: right total hip arthroplasty Condition of Patient: stable History: GINGER HUFF is a 73 year old F with years of increasingly severe pain. Patient has failed conservative management and has elected to undergo a [right] total [hip] replacement Hospital Course: GINGER was admitted to [facility] on 07/24/18. Patient underwent a [right total hip replacement] without complication followed by a brief recovery in PACU and transfer to the Short Stay Surgical Unit in stable condition. Our hospitalist service, physical therapy and occupational therapy also participated in this patients care. Post-op day 1: patient was alert and in no acute distress. Dressing was clean, dry and intact. Operative extremity dorsiflexion and plantarflexion intact, sensation intact to light touch distally, DP2+. Post-op day two: dressing was changed, incision was clean , dry and intact. Hospitalist service was consulted on 07/27 with a CTA negative for PE, no trop elevation. On 07/28/18 she was deemed to be medically and orthopedically stable for discharge home. Physical therapy goals were met. Home Medications Medication Instructions Recorded Confirmed Type Atorvastatin* [Lipitor 20 MG*] 20 mg PO QAM 05/22/18 07/24/18 History Calcitriol CAP* [Rocaltrol CAP*] 0.25 mcg PO QAM 05/22/18 07/24/18 History Calcium Carbonate/Vitamin D3 1 each PO BID 05/22/18 07/24/18 History [Calcium 600 + Vit D Tablet] Flaxseed Oil/[place] 3,6,9 [Sv 1 each PO BID 05/22/18 07/24/18 History Flaxseed Oil 1,300 mg Sftgl] Garlic 1,000 mg PO BID 05/22/18 07/24/18 History Levothyroxine Sodium [Levoxyl] 150 mcg PO QAM 05/22/18 07/24/18 History Multivit-Min/Iron/Folic/Lutein 1 each PO QAM 05/22/18 07/24/18 History [Multivitamin Women 50 Plus Tab] Turmeric/Turmeric Ext/Pepr Ext 1 cap PO BID 07/11/18 07/24/18 History [Turmeric Complex 500 mg Cap] Apixaban* [Eliquis*] 2.5 mg PO BID #60 tab 07/26/18 Rx Docusate CAP* [Colace Cap*] 100 mg PO BID cap 07/26/18 Rx oxyCODONE/Acetamin 5/325 MG* 2 tab PO Q4H PRN #56 tab MDD 8 07/26/18 Rx [Percocet 5/325 TAB*] Discharged to home, Prescriptions sent to pharmacy: ( [facility] in [place]). Outpt PT Discharge Instructions following Orthopedic Surgery: Activity: * Weight Bearing as tolerated * Continue physical therapy and occupational therapy exercises as shown * Home PT Hip replacements: Continue Hip Precautions- do not cross legs or bend greater than 90 degrees/squat Wound care: * OK to shower on post-op day 3, no bathing, swimming, or submerging wound. * Use gentle soap, pat dry. Cover with gauze, SUNG wrap or tape. Call Orthopedic office for: * Increased drainage * Redness * Increased pain * Fever Go to ER with shortness of breath or chest pain. Diet: * Regular diet * Increase fluids and fiber to prevent constipation. * Continue to use stool softeners, call office if no bowel motion within 48 hours. Medications See Home Medication List in your packet for medications that you should take after discharge. DVT Prophylaxis : this medication increases bleeding tendency Eliquis Dosin.5 mg, 1 tab every 12 hours x 30 days Pain Control: Percocet 5/325 mg 1-2 tabs by mouth every 4-6 hours as needed for pain. Maximum of 10 tabs per day. Please note that Percocet contains Tylenol (acetaminophen). Maximum daily dose of Tylenol is 4000 mg from all sources. Antibiotics are required prior to any dental work. FOLLOW UP: Follow up with [Nima ] Within 10-14 days, call for appointment Please call our office with any questions or concerns ([phone])
[2018-07-28] MEDS: VITAMIN D PO SCH (08:21)
[2018-07-28] MEDS: CALCIUM PO SCH (08:21)
[2018-07-28] MEDS: Atorvastatin* 20 MG TAB PO SCH (08:21)
[2018-07-28] MEDS: CALCITRIOL 0.25 MCG PO SCH (08:21)
[2018-07-28] MEDS: Vitamin THERAPEUTIC TAB PO SCH (08:21)
[2018-07-28] MEDS: Apixaban* 2.5 MG TAB PO SCH (08:21)
[2018-07-28] MEDS: Docusate CAP* 100 MG PO SCH (08:21)
[2018-07-28] MEDS: Magnesium Hydroxide LIQ* 30 ML UDC PO SCH (08:23)
[2018-07-28] MEDS: Ondansetron INJ* 2 MG/ML VIAL IV PRN (08:26)
[2018-07-28] MEDS: traMADol TAB* 50 MG PO PRN ×2 (09:10→13:23)
[2018-07-28 12:12] VITALS: BP 123/53
== END 2018-07-28 14:00 | disposition home or self-care (01) | DRG 470 ==
LOC: AA 10:02 → SSU 18:05
PROVIDERS: ADMIT Orthopaedic Surgery Adult Reconstructive Orthopaedic Surgery; ATTEND Orthopaedic Surgery Adult Reconstructive Orthopaedic Surgery
PROC: 0SR904A Replacement of Right Hip Joint with Ceramic on Polyethylene Synthetic Substitute, Uncemented, Open Approach (ICD-10-PCS; principal; 2018-07-24 13:15)
DX: M16.11 Unilateral primary osteoarthritis, right hip (principal); M47.16 Other spondylosis with myelopathy, lumbar region; E03.9 Hypothyroidism, unspecified; E78.00 Pure hypercholesterolemia, unspecified; E89.2 Postprocedural hypoparathyroidism; J30.2 Other seasonal allergic rhinitis; M25.751 Osteophyte, right hip; M54.31 Sciatica, right side; R91.1 Solitary pulmonary nodule; M17.0 Bilateral primary osteoarthritis of knee; M71.9 Bursopathy, unspecified; E66.9 Obesity, unspecified; E78.2 Mixed hyperlipidemia; K58.2 Mixed irritable bowel syndrome; F43.20 Adjustment disorder, unspecified; E89.0 Postprocedural hypothyroidism; D41.00 Neoplasm of uncertain behavior of unspecified kidney; G47.33 Obstructive sleep apnea (adult) (pediatric); J31.0 Chronic rhinitis; R42 Dizziness and giddiness; Z85.850 Personal history of malignant neoplasm of thyroid; Z83.3 Family history of diabetes mellitus; Z90.49 Acquired absence of other specified parts of digestive tract; Z88.2 Allergy status to sulfonamides; Z68.34 Body mass index [BMI] 34.0-34.9, adult; Z82.5 Family history of asthma and other chronic lower respiratory diseases; Z80.1 Family history of malignant neoplasm of trachea, bronchus and lung; Z80.8 Family history of malignant neoplasm of other organs or systems
CPT/HCPCS: 36415; 71275; 72170; 80048; 84484; 85014; 85018; 85049; 88304; 88311; 93005; A9270-GY; C1713; C1776; G8978-GP-CL; G8979-GP-CI; J0690; J1100; J2250; J2270; J2405; J2704; J2795; J3010; J3490; Q9967

== ENCOUNTER 2019-04-30 06:45 | Inpatient (IN) | payer MEDICARE, BC, OTHER ==
--- NOTE | 2019-04-21 11:22 | HP ---
AMENDED REPORT NOW INCLUDES DESIGNATED COSIGNER HISTORY AND PHYSICAL: DATE OF ADMISSION/SURGERY: 04/30/19 DATE OF OFFICE VISIT: 04/20/19 SURGEON: Marifer Herring MD.* (DICTATED BY JUAN DAVID GARCIA) PROCEDURE: Left total hip arthroplasty. CHIEF COMPLAINT: Left hip pain. HISTORY OF PRESENT ILLNESS: Ms. 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 She has failed conservative treatment and elected to proceed with a left total hip arthroplasty. PAST MEDICAL HISTORY: Hypothyroidism, high cholesterol, sleep apnea, thyroid and parathyroid cancer. PAST SURGICAL HISTORY: Right total hip arthroplasty, cataract removal, thyroid and parathyroid removal, urethral sling, D and C, laparoscopy, and cholecystectomy. CURRENT MEDICATIONS: 1. Tylenol as needed. 2. Levothyroxine 150 mcg a day. 3. Atorvastatin calcium 20 mg a day. 4. Calcitriol 0.25 mcg a day. 5. Calcium. 6. Multivitamin. 7. Garlic. 8. Flaxseed oil. 9. Prune juice. 10. Turmeric. ALLERGIES: SULFA. FAMILY HISTORY: Cancer. SOCIAL HISTORY: She is a 73-year-old female. She lives with her . She does not smoke. REVIEW OF SYSTEMS: A complete 14-point review of systems was reviewed with the patient. It was positive for hypothyroidism following a thyroidectomy. She denies a history of DVT, PE, hepatitis, HIV, or anesthesia problems. PHYSICAL EXAMINATION GENERAL: She is well developed, well nourished, in no acute distress. VITAL SIGNS: She stands 5 feet 8 inches tall, weighs 236 pounds. Her blood pressure is 162/100, heart rate is 64. HEENT: Normocephalic, atraumatic. NECK: Supple. No palpable lymph nodes. PULMONARY: The lungs are clear to auscultation bilaterally. CARDIO: Regular rate and rhythm. Strong S1, S2. ABDOMEN: Soft, nontender, nondistended. NEUROLOGICAL: She is alert and oriented x3. MUSCULOSKELETAL: Left lower extremity: The skin is intact. There are no open wounds or abrasions. She walks with an antalgic-type gait favoring the left hip. She has decreased internal and external rotation of the left hip. She is able to dorsiflex and plantarflex, has 2+ dorsalis pedis pulse and intact sensation. ASSESSMENT AND PLAN: Ms. Enriquez is a 73-year-old female with severe end- stage osteoarthritis of the left hip. She has failed conservative treatment and elected to proceed with a left total hip arthroplasty. The surgery is scheduled for 04/30/[address] Herring discussed the risks and benefits of the surgery at today's visit and all of her questions were answered. She will follow up with Dr. Herring 2 weeks after the surgery. JUAN DAVID GARCIA [id number]/[facility] #: [id number] LOUISE
[~2019-04-30 06:45] MED LIST changes: -Acetaminophen IV 1GM/100ML * 1,000 MG/100 ML VIAL IVPB ONE; -Dexamethasone IV* 4 MG/ML 1 ML (4 MG) IV SLOW PU ONE; -Famotidine IV* 10 MG/ML 2 ML (20 mg) IV ONE; -Gabapentin CAP(*) 300 MG PO ONE; +Tranexamic Acid 1,000 MG in NS 0.9% 50 ML* (outpatient use) IV SCH; -ceFAZolin 2 GM in NS PREMIX(*) 2 GM/100 ML BAG IVPB ONE; -celeCOXIB CAP* 200 MG PO ONE
--- OUTSIDE RECORDS SUMMARY | 2019-04-30 06:49 | XMS REPORT | Continuity of Care Document ---
:1945 External Reference #:[id number] Author Name Marifer Herring M.D. 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 Onset: 08/2018 region and thigh Prosthetic arthroplasty of the hip Marifer Herring M.D. Onset: 10/22/2018 Localized, primary osteoarthritis Marifer Herring M.D. Onset: 01/05/2019 Trochanteric bursitis Marifer Herring M.D. Onset: 01/19/2019 Social History Type Date Description Comments Sex Unknown ETOH Use Denies alcohol use Tobacco Use Start: Unknown Patient has never smoked Smoking Status Reviewed: 04/20/19 Patient has never smoked Exercise Type/Frequency Exercises sporadically Allergies, Adverse Reactions, Alerts Active Allergies Reaction Severity Comments Date Sulfa 06/23/2018 Medications Active Medications SIG Qnty Indications Ordering Provider Date Tylenol 650mg Q 6 hours Unknown as needed for pain Levothyroxine Sodium Manjeet Eugene MD 150mcg Tablets Atorvastatin Calcium Take One Tablet Unknown 20mg By Mouth Every Tablets Day Calcitriol 1 by mouth every Unknown 0.25mcg Capsules day Calcium\\ once daily Unknown Multi Complete 1 tablet daily Unknown Garlic once daily Unknown Flaxseed Oil once daily Unknown Prune Juice once daily Unknown Turmeric With Black Unknown Pepper Medications Administered in Office Medication SIG Qnty Indications Ordering Provider Date Depomedrol 40MG Marifer Herring M.D. 02/18/2019 Injection Depomedrol 40MG Marifer Herring M.D. 01/19/2019 Injection Depomedrol 40MG Marifer Herring M.D. 01/19/2019 Injection Depomedrol 40MG Marifer Herring M.D. 01/05/2019 Injection Immunizations Description No Information Available Vital Signs Date Vital Result Comment 04/20/2019 1:44pm Height 68 inches 5'8" Weight 236.00 lb Heart Rate 64 /min BP Systolic 162 mmHg BP Diastolic 100 mmHg Respiratory Rate 18 /min Pain Level 6 BMI (Body Mass Index) 35.9 kg/m2 03/20/2019 1:01pm Height 68 inches 5'8" Weight 225.00 lb Heart Rate 96 /min BP Systolic 130 mmHg BP Diastolic 88 mmHg Respiratory Rate 16 /min Pain Level 4 BMI (Body Mass Index) 34.2 kg/m2 Results Test Acquired Date Facility Test Result H/L Range Note CBC Auto 04/20/2019 [facility] White Blood 5.3 10^3/uL Normal 3.5-10.[address] Count [place], [place] [id number] [phone] Red Blood Count 3.95 10^6/uL Normal 3.70-4.87 Hemoglobin 12.9 g/dL Normal 12.0-16.0 Hematocrit 38 % Normal 35-47 Mean Corpuscular Volume 96 fL Normal 80-97 Mean Corpuscular Hemoglobin 33 pg High 27-31 Mean Corpuscular HGB Conc 34 g/dL Normal 31-36 Red Cell Distribution Width 15 % Normal 10-15 Platelet Count 233 10^3/uL Normal 150-450 Mean Platelet Volume 8.6 fL Normal 7.4-10.4 Abs Neutrophils 2.7 10^3/uL Normal 1.5-7.7 Abs Lymphocytes 2.0 10^3/uL Normal 1.0-4.8 Abs Monocytes 0.4 10^3/uL Normal 0-0.8 Abs Eosinophils 0.1 10^3/uL Normal 0-0.6 Abs Basophils 0.0 10^3/uL Normal 0-0.2 Abs Nucleated RBC 0.0 10^3/uL Granulocyte % 52.0 % Lymphocyte % 37.2 % Monocyte % 8.5 % Eosinophil % 1.8 % Basophil % 0.5 % Nucleated Red Blood Cells % 0.0 Urinalysis Profile 04/20/2019 [facility] Urine Color Yellow [address] [place] [address] [phone] Urine Appearance Clear Urine Specific [place] 1.016 Normal 1.010-1.030 Urine pH 6.0 Normal 5-9 Urine Urobilinogen Negative Negative Urine Ketones Negative Negative Urine Protein Negative Negative Urine Leukocytes Negative Negative Urine Blood 1+ Abnormal Negative Urine Nitrite Negative Negative Urine Bilirubin Negative Negative Urine Glucose Negative Negative Urine White Blood Cell Trace(0-5/hpf) Absent Urine Red Blood Cell Trace(0-2/hpf) Absent Urine Bacteria Absent Absent Urine Squamous Epithelial Cell Present Abnormal Absent Comp Metabolic 04/20/2019 [facility] Sodium 143 mmol/L Normal 135-145 [place] [address] [phone] Potassium 3.9 mmol/L Normal 3.5-5.0 Chloride 106 mmol/L Normal 101-111 Co2 Carbon Dioxide 30 mmol/L Normal 22-32 Anion Gap 7 mmol/L Normal 2-11 Glucose 85 mg/dL Normal 70-100 Blood Urea Nitrogen 16 mg/dL Normal 6-24 Creatinine 0.77 mg/dL Normal 0.51-0.95 BUN/Creatinine Ratio 20.8 High 8-20 Calcium 8.7 mg/dL Normal 8.6-10.3 Total Protein 6.6 g/dL Normal 6.4-8.9 Albumin 4.0 g/dL Normal 3.2-5.2 Globulin 2.6 g/dL Normal 2-4 Albumin/Globulin Ratio 1.5 Normal 1-3 Total Bilirubin 0.20 mg/dL Normal 0.2-1.0 Alkaline Phosphatase 65 U/L Normal 34-104 Alt 14 U/L Normal 7-52 Ast 15 U/L Normal 13-39 Egfr Non- 73.7 >60 Egfr 89.2 >60 1 Type & Screen 04/20/2019 [facility] Patient Blood Type A Positive [address] [place] [address] [phone] Antibody Screen NEGATIVE Inr/Protime 04/20/2019 [facility] Inr 1.01 Normal 0.82-1.09 2 [address] [place] [address] [phone] Laboratory test 04/20/2019 [facility] Partial 34.1 Normal 26.0 -38.[address] [place] [address] Time PTT [phone] Urine Culture And 04/20/2019 [facility] Urine SEE RESULT [address] Culture BELOW [place], [place] [address] [phone] Xray 02/18/2019 Weight [facility] Balance Control Agent In House Inj/Aspir <pending> Major JT Or Bursa W/ US 1 Because ethnic data is not always readily available, this report includes an eGFR for both -Americans and non- Americans. The National Kidney Disease Education Program (NKDEP) does not endorse the use of the MDRD equation for patients that are not between the ages of 18 and 70, are , have extremes of body size, muscle mass, or nutritional status, or are non- or non-. According to the National Kidney Foundation, irrespective of diagnosis, the stage of the disease is based on the level of kidney function: Stage Description GFR(mL/min/1.73 m(2)) 1 Kidney damage with normal or decreased GFR 90 2 Kidney damage with mild decrease in GFR 60-89 3 Moderate decrease in GFR 30-59 4 Severe decrease in GFR 15-29 5 Kidney failure <15 (or dialysis) 2 Standard intensity warfarin therapeutic range: 2.0-3.0 High intensity warfarin therapeutic range: 2.5-3.5 3 SEE RESULT BELOW Name: HAVEN TERRELL : [address]: Marifer Herring MD Acct: [id number] Unit: [id number] AGE: 73 Location: [facility] Re04/20/19 SEX: F Status: REG REF SPEC: [id number] JOHAN: 04/20/191610 [facility] DR: Marifer Herring MD REQ: [id number] RECD: 04/20/19 STATUS: COMP _ SOURCE: URINE SPDESC: ORDERED: Urine Culture QUERIES: Urine Source: Clean Catch Procedure Result Reported Site Urine Culture Final 04/21/19- 5132 ML No growth of clinically significant organisms * ML - Main Lab . END OF REPORT DEPARTMENT OF PATHOLOGY, [address] [place] [id number] Marcello Shields M.D. Director [facility] # [id number] Procedures Date Code Description Status 02/18/2019 Inj/Aspir Major JT Or Bursa W/ US Completed 01/19/2019 Inject/Drain Joint/Bursa Major W/O US Completed 01/19/2019 Injection Single Tendon Origin/Insertion Completed 01/05/2019 Inject/Drain Joint/Bursa Major W/O US Completed Medical Devices Description No Information Available Encounters Type Date Location Provider Dx Diagnosis Office Visit 03/20/2019 [facility] Marifer Herring, M25.552 Pain in left hip 1:00p at [facility].D. M16.12 Unilateral primary osteoarthritis, left hip Office Visit 02/18/2019 10:15a [facility] M25.[facility] Unilateral primary osteoarthritis, left hip Z96.641 Presence of right artificial hip joint Office Visit 01/19/2019 10:00a [facility] Marifer Herring, M25.562 Pain in left at [facility].D. knee M25.462 Effusion, left knee M17.12 Unilateral primary osteoarthritis, left knee M25.552 Pain in left hip M16.12 Unilateral primary osteoarthritis, left hip M70.62 Trochanteric bursitis, left hip Office Visit 01/05/2019 9:00a [facility], M25.562 Pain in left at [facility].D. knee M25.561 Pain in right knee M25.462 Effusion, left knee M25.461 Effusion, right knee M17.0 Bilateral primary osteoarthritis of knee Office Visit 10/22/2018 11:30a [facility] M25.551 Pain in right at [facility].D hip Z96.641 Presence of right artificial hip joint Assessments Date Code Description Provider 04/20/2019 M16.12 Unilateral primary osteoarthritis, left hip Marifer Herring M.D. 04/20/2019 M25.552 Pain in left hip Marifer Herring M.D. 03/23/2019 M16.12 Unilateral primary osteoarthritis, left hip Marifer Herring M.D. 03/23/2019 M25.552 Pain in left hip Marifer Nima, M.D. 03/20/2019 M25.552 Pain in left hip Marifer Nima, M.D. 03/20/2019 M16.12 Unilateral primary osteoarthritis, left hip Marifer Nima, M.D. 02/18/2019 M25.552 Pain in left hip Marifer Nima, M.D. 02/18/2019 M16.12 Unilateral primary osteoarthritis, left hip Marifer Nima, M.D. 02/18/2019 Z96.641 Presence of right artificial hip joint Marifer Herring, M.DKaci 01/19/2019 M25.562 Pain in left knee [place] Herring, M.D. 01/19/2019 M25.462 Effusion, left knee Mar[place]at Herring, M.D. 01/19/2019 M17.12 Unilateral primary osteoarthritis, left knee Mariferm[place]serrat Herring , M.D. 01/19/2019 M25.552 Pain in left hip Marifer Nima, M.D. 01/19/2019 M16.12 Unilateral primary osteoarthritis, left hip Marifer Nima, M.D. 01/19/2019 M70.62 Trochanteric bursitis, left hip Marifer Nima, M.D. 01/05/2019 M25.562 Pain in left knee Marifer Nima, M.D. 01/05/2019 M25.561 Pain in right knee Marif[place]serrat Herring, M.D. 01/05/2019 M25.462 Effusion, left knee Marifer Nima, M.D. 01/05/2019 M25.461 Effusion, right knee Marifer Nima, M.D. 01/05/2019 M17.0 Bilateral primary osteoarthritis of knee Marifer Nima, M.DKaci 10/22/2018 M25.551 Pain in right hip Marifer Nima, M.D. 10/22/2018 Z96.641 Presence of right artificial hip joint Marifer Herring M.D. Plan of Treatment Future Appointment(s):05/11/2019 11:30 am - Marifer Herring M.D. at [facility] at Teelag1204/30/2019 4:30 pm - Jeff Wu PA-C at [facility] at Sasqdy6704/30/2019 4:30 pm - JUAN DAVID Randhawa at [facility] at Agijko9704/30/2019 4:30 pm - Marifer Herring M.D. at [facility] at Mmmnsr4505/22/2019 1:15 pm - Marifer Herring M.D. at [facility] at Dqzhav0209/03/2019 11:00 am - Lena Andrew MD at [facility] AT Rahdnokk34/13/2020 - Marifer Herring M.D.M16.12 Unilateral primary osteoarthritis, left hipFollow up:Follow up: 2 weeks after mrvpgruN99.552 Pain in left hip Functional Status Description No Information Available Mental Status Description No Information Available Referrals Description No Information Available
--- OUTSIDE RECORDS SUMMARY | 2019-04-30 06:49 | XMS REPORT | Continuity of Care Document ---
:1945 External Reference #:[id number] Author Name Marifer Herring M.D. 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 Problems Active Problems Provider Date Localized, primary [...] Date Facility Test Result H/L Range Note Xray 02/18/2019 [facility] In House Inj/Aspir Major JT Or Bursa <pending> W/ US Procedures Date Code Description Status 02/18/201915655 Inj/Aspir Major JT Or Bursa W/ US Completed 01/19/201934662 Inject/Drain Joint/Bursa Major W/O US Completed 01/19/201926961 Injection Single Tendon Origin/Insertion Completed 01/05/2019 Inject/Drain Joint/Bursa Major W/O US Completed Medical Devices Description No Information Available Encounters Type Date Location Provider Dx Diagnosis Office Visit 03/[facility]2019 [facility] M25.552 [facility] Un[facility] primary osteoarthritis, left hip Office Visit 02/18/2019 10:15a [facility] M25.552 [facility]12 Unilateral primary osteoarthritis, left hip Z96.641 Presence of right artificial hip joint Office Visit 01/19/2019 10:00a [facility] Herring M25.562 Pain in left at [facility] knee M25.462 Effusion, left knee M17.12 Unilateral primary osteoarthritis, left knee M25.552 Pain in left hip M16.12 Unilateral primary osteoarthritis, left hip M70.62 Trochanteric bursitis, left hip Office Visit 01/05/2019 9:00a [facility] Marifermontserrat Herring, M25.562 Pain in left at [place] M.D. knee M25.561 Pain in right knee M25.462 Effusion, left knee M25.461 Effusion, right knee M17.0 Bilateral primary osteoarthritis of knee Office Visit 10/22/2018 11:30a [facility] Marifer Herring, M25.551 Pain in right at [place] M.D. hip Z96.641 Presence of right artificial hip joint Assessments Date Code Description Provider 04/20/2019 M16.12 Unilateral primary osteoarthritis, left hip Marifer Herring M.D. 04/20/2019 M25.552 Pain in left hip Marifer Herring M.D. 03/23/2019 M16.12 Unilateral primary osteoarthritis, left hip Marifer Herring M.D. 03/23/2019 M25.552 Pain in left hip Marifer Herring M.D. 03/20/2019 M25.552 Pain in left hip Marifer Herring M.D. 03/20/2019 M16.12 Unilateral primary osteoarthritis, left hip Marifer Herring M.D. 02/18/2019 M25.552 Pain in left hip Marifer Herring M.D. 02/18/2019 M16.12 Unilateral primary osteoarthritis, left hip Marifer Herring M.D. 02/18/2019 Z96.641 Presence of right artificial hip joint Marifer Herring M.D. 01/19/2019 M25.562 Pain in left knee Marifer Herring M.D. 01/19/2019 M25.462 Effusion, left knee Marifer Herring M.D. 01/19/2019 M17.12 Unilateral primary osteoarthritis, left knee Marifer Herring M.D. 01/19/2019 M25.552 Pain in left hip Marifer Herring M.D. 01/19/2019 M16.12 Unilateral primary osteoarthritis, left hip Marifer Herring M.D. 01/19/2019 M70.62 Trochanteric bursitis, left hip Marifer Herring M.D. 01/05/2019 M25.562 Pain in left knee Marifer Herring M.D. 01/05/2019 M25.561 Pain in right knee Marifer Herring M.D. 01/05/2019 M25.462 Effusion, left knee Marifer Herring M.D. 01/05/2019 M25.461 Effusion, right knee Marifer Herring M.D. 01/05/2019 M17.0 Bilateral primary osteoarthritis of knee Marifer Herring M.D. 10/22/2018 M25.551 Pain in right hip Marifer Herring M.D. 10/22/2018 Z96.641 Presence of right artificial hip joint Marifer Herring M.D. Plan of Treatment Future Appointment(s):04/30/2019 4:30 pm - Jeff Wu PA-C at [facility] at Qilkyf5904/30/2019 4:30 pm - JUAN DAVID Randhawa at [facility] at Gxwpsl0804/30/2019 4:30 pm - Marifer Herring M.D. at [facility] at Qlonja0605/22/2019 1:15 pm - Marifer Herring M.D. at [facility] at Kniprm3909/03/2019 11:00 am - Lena Andrew MD at [facility] AT Lfgovrjt56/13/2020 - Marifer Herring M.D.M16.12 Unilateral primary osteoarthritis, left hipFollow up:Follow up: 2 weeks after pvyeuljB02.552 Pain in left hip Functional Status Description No Information Available Mental Status Description No Information Available Referrals Description No Information Available
--- OUTSIDE RECORDS SUMMARY | 2019-04-30 06:49 | XMS REPORT | Continuity of Care Document ---
:1945 External Reference #:[id number] Author Name Marifer Herring M.D. 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 Problems Active Problems Provider Date Localized, primary [...] Patient has never smoked Smoking Status Reviewed: 03/20/19 Patient has never smoked Exercise Type/Frequency Exercises sporadically Allergies, Adverse Reactions, Alerts Active Allergies Reaction Severity Comments Date Sulfa 06/23/2018 Medications Active Medications SIG Qnty Indications Ordering Provider Date Tylenol Unknown Levothyroxine Sodium Manjeet Eugene MD 150mcg Tablets Atorvastatin Calcium Take One Tablet Unknown 20mg By Mouth Every Tablets Day Calcitriol 1 by mouth every Unknown 0.25mcg Capsules day Calcium\\ Unknown Multi Complete Unknown Garlic Unknown Flaxseed Oil Unknown Prune Juice Unknown Turmeric With Black Unknown Pepper Medications Administered in Office Medication SIG Qnty Indications Ordering Provider Date Depomedrol 40MG Marifer Herring M.D. 02/18/2019 Injection Depomedrol 40MG Marifer Herring M.D. 01/19/2019 Injection Depomedrol 40MG Marifer Herring M.D. 01/19/2019 Injection Depomedrol 40MG Marifer Herring M.D. 01/05/2019 Injection Immunizations Description No Information Available Vital Signs Date Vital Result Comment 03/20/2019 1:01pm Height 68 inches 5'8" Weight 225.00 lb Heart Rate 96 /min BP Systolic 130 mmHg BP Diastolic 88 mmHg Respiratory Rate 16 /min Pain Level 4 BMI (Body Mass Index) 34.2 kg/m2 02/18/2019 10:24am Height 68 inches 5'8" Weight 227.00 lb Heart Rate 98 /min BP Systolic 150 mmHg BP Diastolic 82 mmHg Body Temperature 97.2 F Pain Level 2 BMI (Body Mass Index) 34.5 kg/m2 Results Test Acquired Date Facility Test Result H/L Range Note Xray 02/18/2019 Anesthetist In House Inj/Aspir Major JT Or Bursa <pending> W/ US Procedures Date Code Description Status 02/18/2019 Inj/Aspir Major JT Or Bursa W/ US Completed 01/19/2019 Inject/Drain Joint/Bursa Major W/O US Completed 01/19/201975155 Injection Single Tendon Origin/Insertion Completed 01/05/2019 Inject/Drain Joint/Bursa Major W/O US Completed Medical Devices Description No Information Available Encounters Type Date Location Provider Dx Diagnosis Office Visit 02/18/2019 [facility], M25.552 Pain in left hip 10:15a at [facility].D. M16.12 Unilateral primary osteoarthritis, left hip Z96.641 Presence of right artificial hip joint Office Visit 01/19/2019 10:00a [facility] Herring M25.562 Pain in left at [facility].D. knee M25.462 Effusion, left knee M17.12 Unilateral primary osteoarthritis, left knee M25.552 Pain in left hip M16.12 Unilateral primary osteoarthritis, left hip M70.62 Trochanteric bursitis, left hip Office Visit 01/05/2019 9:00a Galen Malagon.562 Pain in left at [place] M.D. knee M25.561 Pain in right knee M25.462 Effusion, left knee M25.461 Effusion, right knee M17.0 Bilateral primary osteoarthritis of knee Office Visit 10/22/2018 11:30a [facility] Marifer Herring, M25.551 Pain in right at [place] M.D. hip Z96.641 Presence of right artificial hip joint Assessments Date Code Description Provider 03/20/2019 M25.552 Pain in left hip Mariferleon Herring, M.DKaci 03/20/2019 M16.12 Unilateral primary osteoarthritis, left hip Elías Padilla.DKaci 02/18/2019 M25.552 Pain in left hip Marif[place]serrat Herring M.DKaci 02/18/2019 M16.12 Unilateral primary osteoarthritis, left hip Elías Padilla.DKaci 02/18/2019 Z96.641 Presence of right artificial hip joint Elías Padilla.Marjorie 01/19/2019 M25.562 Pain in left knee Marifermontserrat Herring M.DKaci 01/19/2019 M25.462 Effusion, left knee Marifer Herring M.DKaci 01/19/2019 M17.12 Unilateral primary osteoarthritis, left knee Elías Padilla.DKaci 01/19/2019 M25.552 Pain in left hip Mariferleon Herring, M.DKaci 01/19/2019 M16.12 Unilateral primary osteoarthritis, left hip Elías Padilla.Marjorie 01/19/2019 M70.62 Trochanteric bursitis, left hip Marifermontserrat Herring M.DKaci 01/05/2019 M25.562 Pain in left knee Marifer Herring M.DKaci 01/05/2019 M25.561 Pain in right knee Marifer Herring M.DKaci 01/05/2019 M25.462 Effusion, left knee Marifer Herring M.DKaci 01/05/2019 M25.461 Effusion, right knee Marifer Herring M.DKaci 01/05/2019 M17.0 Bilateral primary osteoarthritis of knee Marifer Herring M.D. 10/22/2018 M25.551 Pain in right hip Marifer Herring M.D. 10/22/2018 Z96.641 Presence of right artificial hip joint Marifer Herring M.D. Plan of Treatment Future Appointment(s):05/22/2019 1:15 pm - Marifer Herring M.D. at [facility] at Opdsio3009/03/2019 11:00 am - Lena Andrew MD at [facility] AT Epyzhkki17/13/2019 - Marifer Herring M.D.M25.552 Pain in left hipFollow up:Follow up: 2 months for repeat left hip US qejrouawzG72.12 Unilateral primary osteoarthritis, left hip Functional Status Description No Information Available Mental Status Description No Information Available Referrals Description No Information Available
[2019-04-30] MEDS ORDERED: celeCOXIB CAP* 200 MG PO ONE (07:59)
[2019-04-30] MEDS ORDERED: Gabapentin CAP(*) 100 MG PO ONE (07:59)
[2019-04-30] MEDS ORDERED: Acetaminophen TAB* 325 MG PO ONE (07:59)
[2019-04-30] MEDS ORDERED: Gabapentin CAP(*) 300 MG PO ONE (07:59)
[2019-04-30] MEDS ORDERED: Naloxone* 0.4 MG/ML 1 ML VIAL IV PRN (08:00)
[2019-04-30] MEDS ORDERED: HYDROmorphone INJ1* 1 MG/ML SYRINGE IV PRN (08:00)
[2019-04-30] MEDS ORDERED: oxyCODONE TAB* 5 MG TAB PO PRN ×2 (08:00→11:28)
[2019-04-30] MEDS ORDERED: Gabapentin CAP(*) 100 MG ONE (08:04)
[2019-04-30] MEDS ORDERED: celeCOXIB CAP* 200 MG ONE (08:04)
[2019-04-30] MEDS ORDERED: fentaNYL* 50 MCG/ML 2 ML VIAL (100 MCG VIAL) ONE (08:04)
[2019-04-30] MEDS ORDERED: ceFAZolin 2 GM PREMIX in ORs 2 GM/50 ML BAG ONE (08:05)
[2019-04-30] MEDS ORDERED: ROPIVACAINE 5 MG/ML 30 ML BTL (0.5%) ONE (08:38)
[2019-04-30] MEDS ORDERED: Bupivacaine 0.5%* 50 ML MDV VIAL ONE (08:45)
[2019-04-30] MEDS ORDERED: Midazolam* 1 MG/ML 2 ML VIAL (2 MG) ONE (09:01)
[2019-04-30] MEDS ORDERED: Dexamethasone IV* 4 MG/ML 1 ML (4 MG) ONE (09:04)
[2019-04-30] MEDS ORDERED: Ondansetron INJ* 2 MG/ML VIAL ONE (09:04)
[2019-04-30] MEDS ORDERED: Propofol* 500 MG/50 ML BTL ONE (09:04)
[2019-04-30] MEDS ORDERED: Ondansetron ODT TAB* 4 MG PO PRN (11:28)
[2019-04-30] MEDS ORDERED: Ondansetron INJ* 2 MG/ML VIAL IV PRN (11:28)
[2019-04-30] MEDS ORDERED: Magnesium Hydroxide LIQ* 30 ML UDC PO PRN (11:28)
[2019-04-30] MEDS ORDERED: diPHENhydraMINE PO* 25 MG PO PRN (11:28)
[2019-04-30] MEDS ORDERED: diPHENhydraMINE IV* 50 MG/ML 1 ml VIAL (BENADRYL) IV PRN (11:28)
[2019-04-30] MEDS ORDERED: oxyCODONE TAB* 5 MG TAB ONE (11:45)
[2019-04-30] MEDS ORDERED: HYDROmorphone INJ1* 1 MG/ML SYRINGE ONE (12:11)
[2019-04-30] MEDS: Lactated Ringers 1000 ML Bag* 1,000 ML IV SCH (13:03)
[2019-04-30] MEDS: Acetaminophen TAB* 325 MG PO PRN ×2 (14:11→21:29)
[2019-04-30] MEDS: Cyclobenzaprine TAB* 10 MG PO PRN (14:12)
--- NOTE | 2019-04-30 14:50 | PN ---
Progress Note - Progress Note Date of Service: 04/30/19 Note: resting in bed comfortably, pain well controlled; dressing c/d/i; able to DF/PF , 2+ DP pulse and intact sensation
[2019-04-30] MEDS: Morphine INJ* 2 MG/ML 1 ML SYRINGE (TWO MG - NEW SYRINGE VERSION) IV PRN (16:23)
[2019-04-30] MEDS: ceFAZolin 1 GM ADVAN(*) 1 GM in NS 0.9% 50 ML* 50 ML IVPB SCH (16:32)
--- NOTE | 2019-04-30 16:52 | OP ---
Operative Report - Blank - Operative Report Date of Operation: 04/30/19 Note: GINGER HUFF 1945 Date Of Surgery: 04/30/19 Marifer Herring MD Dietist: Otto FALL did help throughout the procedure with preparation of the hip, wound retraction, manipulation of the hip, and wound closure. Anesthesiologist: Dr. Moss Anesthesia Type: Spinal Preoperative Diagnosis: Left severe degenerative osteoarthritis of the hip Postoperative Diagnosis: As above Procedure Performed: Left Total Hip Arthroplasty Complications: None Specimen: Femoral head and acetabular reamings sent to pathology. Hardware used: This is uncemented [place] total hip arthroplasty hardware for the femur a size 5 accolade II with 127 neck angle femoral component, for the acetabulum a size 48D trident II tritanium cluster hole shell with a 20 mm screw , for the insert a size 32 D trident X3 polyethylene insert, and for the femoral head a size 32 - 4 ceramic V40 femoral head. Brief history/Indication: GINGER HUFF was known in clinic and had a history of severe left hip pain. She failed conservative treatment with anti- inflammatories, pain pills, intra-articular injections and physical therapy. She elected to undergo left total hip arthroplasty due to continued pain and decreased quality of life. Radiographs showed severe end stage osteoarthritis of the hip with bone on bone contact. Informed consent was obtained from the patient. She understood the risks of surgery included but were not limited to: bleeding, infection, damage to nearby structures, intraoperative fracture, nerve palsy, failure of the hardware, early loosening, stiffness or loss of motion, dislocation, leg length discrepancy, anesthesia complications, stroke, heart attack, blood clot and . She wished to proceed. Intra-Operative findings: Intraoperatively the patient was noted to have severe loss of cartilage of the acetabulum and femoral head. Description of the Procedure: GINGER HUFF was identified in the preanesthesia unit. Her left hip was marked as the correct operative side. Informed consent was signed and placed in the chart. The patient was taken to the operating room and placed under anesthesia without complication. A aldrich catheter was placed. The patient was placed on the peg board with all bony prominences well padded. The left lower extremity was prepped and draped in the usual sterile fashion. Preoperative time -out was made to correctly identify the patient, side and site. Appropriate intraoperative antibiotics were given within one hour of incision. A standard posterior incision was made and carried sharply down to the lateral fascia. A new 10 blade was used to make an incision in the fascia in line with the skin incision. A charnley retractor was placed. The piriformis and conjoined tendons were identified and elevated off the posterolateral femur using electrocautery. These were tagged with number 5 Ethibond. Next electrocautery was used to make a posterolateral capsular flap and this was tagged with number 5 Ethibonds. The hip was carefully dislocated. Lesser trochanter to the center of the femoral head was measured at 60 mm. The oscillating saw was used to make the femoral neck cut. The femoral head was carefully removed. The femur was retracted anteriorly and the acetabular retractors were placed. Long-handled knife was used to sharply remove any remaining labrum from the acetabular rim. The acetabulum was sequentially reamed up to a size 48. A bleeding subchondral bone bed was obtained. A trial liner was placed and had excellent fit and stability. A 48D cup with a single screw was placed and had excellent stability with appropriate anteversion and abduction angle. A size 32D liner was impacted into the acetabular shell. The liner was checked for stability and was stable. Next attention was turned to preparation of the femoral canal. A canal finder was used to enter the proximal femur. The femoral canal was sequentially broached up to a size 5 femoral broach trial. A trial neck and 32 - 4 trial femoral head was chosen. Lesser trochanter to center of the femoral head measurement was satisfactory. The hip was reduced and taken through a range of motion. The hip was stable in all positions with good soft tissue tension and appropriate leg lengths. The hip was dislocated and all trials were removed. The final implant chosen was a accolade size 5. This stem was impacted into the femoral canal without difficulty. The stem was stable with appropriate anteversion. The femoral head chosen was a 32 - 4 ceramic head. The head was impacted onto the femoral neck without difficulty. The final lesser trochanter to center of the femoral head measurement was satisfactory. The hip was reduced and taken through a range of motion. The hip was stable in all positions with good soft tissue tension and appropriate leg lengths. The hip was copiously irrigated with sterile saline. The previously tagged capsule and tendons were repaired to the posterolateral femur through two trochanteric drill holes. The lateral fascia layer was closed using number 1 vicryls. The rest of the incision was closed in a layered fashion using 0 and 2-0 vicryls. The skin was closed using 3-0 monocryl suture and Dermabond. Sterile adaptic, 4x4s and paper tape was used to cover the incision. The patients anesthesia was reversed without difficulty. She was taken to the PACU in stable condition. Intended weight-bearing will be as tolerated with posterior hip precautions.
[2019-04-30] MEDS: oxyCODONE/Acetamin 5/325 MG* TAB PO PRN ×2 (18:20→23:50)
[2019-04-30] MEDS: Magnesium Hydroxide LIQ* 30 ML UDC PO SCH (21:23)
[2019-04-30] MEDS: Docusate CAP* 100 MG PO SCH (21:23)
[2019-05-01] MEDS: ceFAZolin 1 GM ADVAN(*) 1 GM in NS 0.9% 50 ML* 50 ML IVPB SCH ×2 (01:01→09:29)
[2019-05-01] MEDS: Levothyroxine TAB* 150 MCG TAB PO SCH (05:40)
[2019-05-01 06:09] LABS: Hematocrit 31 % (35-47); Hemoglobin 10.4 g/dL (12.0-16.0); Mean Platelet Volume 7.6 fL (7.4-10.4); Platelet Count 179 10^3/uL (150-450)
[2019-05-01 06:31] LABS: Calcium 7.1 mg/dL (8.6-10.3); EGFR African American 102.9 (>60); EGFR Non-African American 85.1 (>60); Potassium 3.6 mmol/L (3.5-5.0)
[2019-05-01] MEDS: Lactated Ringers 1000 ML Bag* 1,000 ML IV SCH (07:53)
[2019-05-01] MEDS: Morphine INJ* 2 MG/ML 1 ML SYRINGE (TWO MG - NEW SYRINGE VERSION) IV PRN (08:36)
[2019-05-01] MEDS: oxyCODONE/Acetamin 5/325 MG* TAB PO PRN ×3 (08:38→16:48)
[2019-05-01] MEDS: Magnesium Hydroxide LIQ* 30 ML UDC PO SCH ×2 (09:28→21:38)
[2019-05-01] MEDS: Calcium Carbonate CHEW TAB* 500 MG (TUMS) PO SCH ×2 (09:29→12:42)
[2019-05-01] MEDS: Docusate CAP* 100 MG PO SCH ×2 (09:29→21:37)
[2019-05-01] MEDS: Apixaban* 2.5 MG TAB PO SCH ×2 (09:29→21:37)
[2019-05-01] MEDS: Atorvastatin* 20 MG TAB PO SCH (09:29)
[2019-05-01] MEDS: Vitamin THERAPEUTIC TAB PO SCH (09:29)
--- NOTE | 2019-05-01 10:36 | PN ---
Progress Note - Progress Note Date of Service: 05/01/19 SOAP: Subjective: [Pt seen sitting up in chair. States that she is doing well. Is feeling a little dizzy. She denies any chest pain, SOB, nausea, vomiting, numbness or tingling. ] Objective: [General : A&OX3, NAD Negative Chvostek's and Trousseau's signs. Dressing is c/d/i. +df/pf. Calves are soft and non tender. Sensation intact to light touch distally. 2 + DP pulse. Vital Signs Temp 99.3 F 05/01/19 07:52 Pulse 83 05/01/19 07:52 Resp 16 05/01/19 09:36 BP 102/60 05/01/19 07:52 Pulse Ox 94 05/01/19 07:52 Intake & Output 04/30/19 05/01/19 05/01/19 18:59 06:59 18:59 Intake Total 3040 355 985 Output Total 2050 550 Balance 990 -195 985 Weight 233 lb Intake: IV Fluids 2800 985 LR 2800 985 IVPB 55 ABX - CEFAZOLIN 55 Oral 240 300 Output: Urine 400 Bravo 1850 150 Estimated Blood Loss 200 Other: # Bowel Movements 0 ] Assessment: [POD 1 Left total hip arthroplasty] Plan: [Pts calcium is 7.1 today. She will be restarted on her Rocaltrol along with Vit D and calcium She also was given calcium carbonate today for quicker absorption She will continue with posterior hip precautions PT Eliquis 2.5 mg bid
[2019-05-01] MEDS: Acetaminophen TAB* 325 MG PO PRN ×2 (12:41→21:52)
[2019-05-01] MEDS: Calcium/Vitamin D TAB 250/125* TAB PO SCH (21:37)
[2019-05-02] MEDS: Levothyroxine TAB* 150 MCG TAB PO SCH (06:25)
[2019-05-02] MEDS: oxyCODONE/Acetamin 5/325 MG* TAB PO PRN ×2 (06:25→11:24)
[2019-05-02 06:57] LABS: Hematocrit 32 % (35-47); Hemoglobin 11.1 g/dL (12.0-16.0); Platelet Count 170 10^3/uL (150-450)
--- NOTE | 2019-05-02 08:45 | PN ---
Progress Note - Progress Note Date of Service: 05/02/19 SOAP: Subjective: POD #2 Left WILI. Doing well. C/o occasional muscle spasms in thigh. Denies CP/ SOB, f/c, n/v or calf pain. Objective: Vital Signs: Temp Pulse Resp BP Pulse Ox 97.7 F 95 14 121/65 95 05/02/19 08:02 05/02/19 08:02 05/02/19 08:02 05/02/19 08:02 05/02/19 08:02 Gen: A&Ox3, NAD at rest sitting in chair Left hip: Incision C/D/I. Mild edema to thigh. No erythema or ecchymosis. Calf soft/NT. +f/e at ankle and MTPs. N/V intact Labs: Laboratory Results - last 24 hr 05/01/19 05/02/19 08:45 06:45 Hgb 11.1 L Hct 32 L Plt Count 170 MPV 8.0 Ionized Calcium 0.96 L Assessment: POD #2 Left WILI Plan: D/C home today after PT Cont posterior hip precautions Cont Eliquis for DVT ppx Cont Percocet for pain, Flexeril for muscle spasms F/u with Dr. Herring 10-14 days post op
--- NOTE | 2019-05-02 08:49 | DS ---
Orthopedic Discharge Summary - Discharge Summary Date of Admission:04/30/19 Date of Discharge: 05/02/19 Date of Surgery: 04/30/19 Attending Orthopedic Provider: Marifer Herring MD Pre-operative Diagnosis: Left hip osteoarthritis Operative Procedure: Left total hip arthroplasty Disposition of Patient: Home Condition of Patient: Stable History: GINGER HUFF is a 73 year old F with years of increasingly severe left hip pain. Patient has failed conservative management and has elected to undergo a left total hip replacement Hospital Course: GINGER was admitted to [facility] on 04/30/19. Patient underwent a left total hip arthroplasty without complication followed by a brief recovery in PACU and transfer to the Short Stay Surgical Unit in stable condition. Our hospitalist service, physical therapy and occupational therapy also participated in this patients care. Post-op day 1: patient was alert and in no acute distress. Dressing was clean, dry and intact. Operative extremity dorsiflexion and plantarflexion intact, sensation intact to light touch distally, DP2+. Calcium was low and was repleted. Patient was asymptomatic. Post-op day two: dressing was changed, incision was clean, dry and intact. Patient was deemed to be medically and orthopedically stable for discharge. Physical therapy goals were met. Home Medications Medication Instructions Recorded Confirmed Type Atorvastatin* [Lipitor 20 MG*] 20 mg PO QAM 05/22/18 04/30/19 History Calcitriol CAP* [Rocaltrol CAP*] 0.25 mcg PO QAM 05/22/18 04/30/19 History Calcium Carbonate/Vitamin D3 1 each PO BID 05/22/18 04/30/19 History [Calcium 600 + Vit D Tablet] Flaxseed Oil/[place] 3,6,9 [Sv 1 each PO BID 05/22/18 04/30/19 History Flaxseed Oil 1,300 mg Sftgl] Garlic 1,000 mg PO BID 05/22/18 04/30/19 History Levothyroxine Sodium [Levoxyl] 150 mcg PO QAM 05/22/18 04/30/19 History Multivit-Min/Iron/Folic/Lutein 1 each PO QAM 05/22/18 04/30/19 History [Multivitamin Women 50 Plus Tab] Turmeric/Turmeric Ext/Pepr Ext 1 cap PO BID 07/11/18 04/30/19 History [Turmeric Complex 500 mg Cap] Docusate CAP* [Colace Cap*] 200 mg PO BEDTIME 04/20/19 04/30/19 History Apixaban* [Eliquis*] 2.5 mg PO BID tab 05/02/19 Rx Cyclobenzaprine TAB* [Flexeril 10 10 mg PO Q6H PRN tab 05/02/19 Rx MG TAB*] Docusate CAP* [Colace Cap*] 100 mg PO BID cap 05/02/19 Rx oxyCODONE/Acetamin 5/325 MG* 1 tab PO Q4H PRN tab 05/02/19 Rx [Percocet 5/325 TAB*] oxyCODONE/Acetamin 5/325 MG* 2 tab PO Q4H PRN tab 05/02/19 Rx [Percocet 5/325 TAB*] Discharge Instructions following Orthopedic Surgery: Activity: * Weight Bearing as tolerated * Continue physical therapy and occupational therapy exercises as shown Hip replacements: Continue Hip Precautions- do not cross legs or bend greater than 90 degrees/squat Wound care: * OK to shower on post-op day 3, no bathing, swimming, or submerging wound. * Use gentle soap, pat dry. Cover with gauze, SUNG wrap or tape. * Visiting home nurse to do wound checks. Call Orthopedic office for: * Increased drainage * Redness * Increased pain * Fever Go to ER with shortness of breath or chest pain. Diet: * Regular diet * Increase fluids and fiber to prevent constipation. * Continue to use stool softeners, call office if no bowel motion within 48 hours. Medications See Home Medication List in your packet for medications that you should take after discharge. DVT Prophylaxis: Eliquis Dosin.5 mg, 1 tab every 12 hours x 30 days Pain Control: Percocet Dosin/325 mg 1-2 tabs by mouth every 4-6 hours as needed for pain. Maximum of 10 tabs per day. Flexeril 10 mg three times daily as needed for spasms Please note that Percocet contains Tylenol (acetaminophen). Maximum daily dose of Tylenol is 4000 mg from all sources. Antibiotics are required prior to any dental work. FOLLOW UP: Follow up with Dr. Herring Within 10-14 days, call for appointment Please call our office with any questions or concerns ([phone])
[2019-05-02] MEDS: Magnesium Hydroxide LIQ* 30 ML UDC PO SCH (08:58)
[2019-05-02] MEDS ORDERED: Calcitriol CAP* 0.25 MCG PO SCH (09:00)
[2019-05-02] MEDS: Apixaban* 2.5 MG TAB PO SCH (09:46)
[2019-05-02] MEDS: Calcium/Vitamin D TAB 250/125* TAB PO SCH (09:46)
[2019-05-02] MEDS: Cyclobenzaprine TAB* 10 MG PO PRN (09:46)
[2019-05-02] MEDS: Atorvastatin* 20 MG TAB PO SCH (09:47)
[2019-05-02] MEDS: Vitamin THERAPEUTIC TAB PO SCH (09:47)
[2019-05-02] MEDS: Docusate CAP* 100 MG PO SCH (09:47)
[2019-05-02 12:08] VITALS: BP 129/63
== END 2019-05-02 13:30 | disposition home or self-care (01) | DRG 470 ==
LOC: AA 06:45 → SSU 11:28
PROVIDERS: ADMIT Orthopaedic Surgery Adult Reconstructive Orthopaedic Surgery; ATTEND Orthopaedic Surgery Adult Reconstructive Orthopaedic Surgery
PROC: 0SRB04A Replacement of Left Hip Joint with Ceramic on Polyethylene Synthetic Substitute, Uncemented, Open Approach (ICD-10-PCS; principal; 2019-04-30 10:30)
DX: M16.12 Unilateral primary osteoarthritis, left hip (principal); E78.00 Pure hypercholesterolemia, unspecified; E89.0 Postprocedural hypothyroidism; E89.2 Postprocedural hypoparathyroidism; Z96.641 Presence of right artificial hip joint; G47.33 Obstructive sleep apnea (adult) (pediatric); E78.5 Hyperlipidemia, unspecified; N18.9 Chronic kidney disease, unspecified; Z88.2 Allergy status to sulfonamides; M62.838 Other muscle spasm; Z79.890 Hormone replacement therapy
CPT/HCPCS: 36415; 80048; 82330; 85014; 85018; 85049; 88304; 88311; A9270-GY; C1713; C1776; J0690; J1100; J1170; J2250; J2270; J2405; J2704; J2795; J3010; J3490

== ENCOUNTER 2020-12-16 07:56 | Observation (INO) ==
[~2020-12-16 07:56] MED LIST changes: +Buffered Lidocaine 1% SYRIN 1 ml INTRADERM ONE; -Buffered Lidocaine 1% SYRIN* 1 ML/SYRINGE INTRADERM ONE; -Lactated Ringers 1000 ML Bag* 1,000 ML IV SCH; +Lactated Ringers 1000 ml BAG 1,000 ML IV SCH; -Tranexamic Acid 1,000 MG in NS 0.9% 50 ML* (outpatient use) IV SCH
[2020-12-16] MEDS ORDERED: ceFAZolin 2 GM in NS PREMIX 2 GM/100 ML BAG IVPB ONE (08:28)
[2020-12-16] MEDS ORDERED: Midazolam 2 mg/2 ml VIAL 1 mg/ml 2 ml VIAL (2 mg) ONE (09:11)
[2020-12-16] MEDS ORDERED: Lidocaine 1% MPF 5 ML VIAL ONE (09:33)
[2020-12-16] MEDS ORDERED: ROPIVACAINE 5 MG/ML 30 ML BTL (0.5%) ONE ×2 (09:33→10:56)
[2020-12-16] MEDS ORDERED: Ondansetron 4 mg VIAL 2 MG/ML 2 ml VIAL IV PRN ×2 (12:03→12:56)
[2020-12-16] MEDS ORDERED: DiMENhydriNATE IV 50 mg/ml 1 ml VIAL IV PUSH PRN (12:03)
[2020-12-16] MEDS ORDERED: HYDROmorphone 1 MG/1 ML SYRINGE IV PRN (12:03)
[2020-12-16] MEDS ORDERED: Acetaminophen IV 1 GM/100ML 100 ML IV PRN (12:03)
[2020-12-16] MEDS ORDERED: Naloxone 0.4 mg VIAL 0.4 mg/ml 1 ml VIAL IV PRN (12:03)
[2020-12-16] MEDS ORDERED: diPHENhydraMINE IV 50 MG/ML 1 ml VIAL (BENADRYL) IV PRN (12:56)
[2020-12-16] MEDS ORDERED: Ondansetron ODT 4 mg TAB 4 MG TAB PO PRN (12:56)
[2020-12-16] MEDS ORDERED: Magnesium Hydroxide LIQ 30 ML UDC PO PRN (12:56)
[2020-12-16] MEDS ORDERED: diPHENhydraMINE 25 mg TAB PO PRN (12:56)
[2020-12-16] MEDS ORDERED: Morphine 2 MG/ML SYRINGE IV PRN (12:56)
[2020-12-16] MEDS ORDERED: Lactulose 30 ml UDC PO PRN (12:56)
[2020-12-16] MEDS ORDERED: fentaNYL 100 mcg/2 ml 50 MCG/ML VIAL ONE (14:03)
[2020-12-16] MEDS: fentaNYL 100 mcg/2 ml 50 MCG/ML VIAL IV PRN ×4 (14:04→14:56)
[2020-12-16] MEDS ORDERED: HYDROcodone/ACETAMIN 5/325 mg TAB ONE (14:31)
[2020-12-16] MEDS ORDERED: Ondansetron 4 mg VIAL 2 MG/ML 2 ml VIAL ONE (14:53)
[2020-12-16] MEDS: Lactated Ringers 1000 ml BAG 1,000 ML IV SCH (16:44)
[2020-12-16] MEDS: HYDROcodone/ACETAMIN 5/325 mg TAB PO PRN (18:36)
[2020-12-16] MEDS: ceFAZolin 1 GM ADVAN 1 GM in NS 0.9% 50 ML 50 ML IVPB SCH (20:42)
[2020-12-16] MEDS: Magnesium Hydroxide LIQ 30 ML UDC PO SCH (20:42)
[2020-12-16] MEDS: VITAMIN D3 PO SCH (20:46)
[2020-12-16] MEDS: CALCIUM PO SCH (20:46)
[2020-12-17] MEDS: ceFAZolin 1 GM ADVAN 1 GM in NS 0.9% 50 ML 50 ML IVPB SCH ×2 (05:23→11:42)
[2020-12-17] MEDS: Lactated Ringers 1000 ml BAG 1,000 ML IV SCH (06:02)
[2020-12-17] MEDS: HYDROcodone/ACETAMIN 5/325 mg TAB PO PRN (06:23)
[2020-12-17 06:36] LABS: Hematocrit 34 % (35-47); Hemoglobin 11.7 g/dL (12.0-16.0); Mean Platelet Volume 7.9 fL (7.4-10.4); Platelet Count 204 10^3/uL (150-450)
[2020-12-17 06:55] LABS: EGFR African American 97.4 (>60); EGFR Non-African American 80.5 (>60); Potassium 3.5 mmol/L (3.5-5.0)
[2020-12-17] MEDS ORDERED: Morphine ER 15 mg TAB ** extended release PO SCH (08:00)
[2020-12-17] MEDS: VITAMIN D3 PO SCH (08:52)
[2020-12-17] MEDS: CALCIUM PO SCH (08:52)
[2020-12-17] MEDS: Magnesium Hydroxide LIQ 30 ML UDC PO SCH (08:52)
[2020-12-17] MEDS ORDERED: Vitamin THERAPEUTIC TAB PO SCH (09:00)
[2020-12-17] MEDS ORDERED: Aspirin EC 81 mg TAB.EC (enteric coated) PO SCH (09:00)
[2020-12-17] MEDS ORDERED: CALCITRIOL 0.25 MCG PO SCH (09:00)
[2020-12-17 12:46] VITALS: BP 112/71
== END 2020-12-17 14:52 | disposition home or self-care (01) ==
LOC: SSU 07:56 → OR 07:56
PROVIDERS: ADMIT Orthopaedic Surgery Adult Reconstructive Orthopaedic Surgery; ATTEND Orthopaedic Surgery Adult Reconstructive Orthopaedic Surgery